=== PATIENT | male | born 1930 | race Caucasian/White ===

== ENCOUNTER 2016-12-16 13:13 | Inpatient (IN) | payer OTHER ==
[~2016-12-16] VITALS: Ht 170.2 cm; Wt 118.0 kg
[~2016-12-16 13:13] MED LIST: ALBU1NEB10 INH; ARC10 PO; ASPI81TA28 PO; CRFUDL PO; DFL100 PO; FINA5TAB4 PO; FLM4 PO; FLX10 PO; FRS/40 PO; GLC500 PO; GLIM1TAB2 PO; LEVO75TA5 PO; METO50TA17 PO; OXGN; PRT40 PO; RMR15 PO; SPR25 PO; SPRIN/30 INH; ULT50HP PO
--- NOTE | 2016-12-16 13:42 | EMERGENCY ROOM VISIT NOTE ---
History Report prepared by Scribe: Mohini Fernandez Under the Supervision of: Dr. Gordo Duke D.O. First contact with patient: 13:31 Chief Complaint: INFECTION Stated Complaint: INFECTION Nursing Triage Summary: Left sided facial swelling and redness since yesterday. Family reports fever last night. Pt has dementia, but has been more confused. Elevated BSG last night. History of Present Illness The patient is an 86 year old male who presents to the Emergency Room with complaints of a possible facial infection. He is accompanied by his and daughters. His family reports he has had persistent left sided facial swelling and redness that started yesterday. They believe the patient had a fever of 101 degrees last night and he also complained of the chills. The patient denies any pain in his face. He has had no difficulty speaking or eating. He has a history of dementia and has been more confused recently and his blood sugar was noted to be elevated last night, approximately 409. The patient also denies any abdominal pain. Source of History: patient, family Onset: yesterday Position: head (face) Timing: other (persistent) Associated Symptoms: + chills, + fevers, No abdominal pain Review of Systems See HPI for pertinent positives & negatives. A total of 10 systems reviewed and were otherwise negative. Past Medical & Surgical Medical Problems: (1) Benign prostatic hyperplasia (2) CHF (congestive heart failure) (3) Chronic osteoarthritis (4) CKD (chronic kidney disease), stage III (5) COPD (chronic obstructive pulmonary disease) (6) Dementia (7) Diabetes mellitus type 2 (8) Facial cellulitis (9) GERD (gastroesophageal reflux disease) (10) HTN (hypertension) (11) MIKIE on CPAP Surgical Problems: (1) Hx of cholecystectomy (2) Hx of umbilical hernia repair (3) s p appendectomy (4) s p hernia repair (5) s p right TKA (6) s p shoulder surgery Family History Cancer Diabetes mellitus Heart disease Hypertension Lung disease Social History Smoking Status: Former Smoker Alcohol Use: none Drug Use: none Marital Status: Housing Status: lives with family Occupation Status: retired Current/Historical Medications Scheduled Aspirin (Aspirin Ec), 81 MG PO DAILY Donepezil HCl (Donepezil HCl), 10 MG PO DAILY Finasteride (Proscar), 5 MG PO QAM Furosemide (Lasix), 40 MG PO BID Glimepiride (Glimepiride), 4 MG PO BID Levothyroxine Sodium (Levothyroxine Sodium), 75 MCG PO DAILY Magnesium Oxide (Magnesium), 800 MG PO DAILY Metformin HCl (Metformin HCl), 1,000 MG PO BID Metoprolol Tartrate (Metoprolol Tartrate), 50 MG PO BID Mirtazapine (Mirtazapine), 15 MG PO HS Oxygen (Oxygen), 2 LITERS NA HS Pantoprazole (Protonix), 40 MG PO DAILY Spironolactone (Spironolactone), 12.5 MG PO DAILY Tamsulosin HCl (Tamsulosin HCl), 0.4 MG PO DAILY Tiotropium Morgan (Spiriva Handihaler), 1 CAP INH DAILY Scheduled PRN Cyclobenzaprine HCl (Cyclobenzaprine HCl), 10 MG PO TID PRN for Muscle Spasms Tramadol (Ultram), 50 MG PO Q4H PRN for Pain Allergies Coded Allergies: Pravastatin (Verified Allergy, Unknown, MUSCLE PAIN, 12/16/16) Physical Exam Vital Signs Date Time Temp Pulse Resp B/P Pulse Ox O2 Delivery O2 Flow Rate FiO2 12/16/16 17:00 81 18 122/58 91 Room Air 12/16/16 14:59 68 20 117/73 94 Room Air 12/16/16 13:19 37.0 83 20 135/82 94 Room Air Physical Exam GENERAL: Patient is awake, alert, non-anxious appearing and comfortable. EYES: The conjunctivae are clear. The pupils are round and reactive. EARS, NOSE, MOUTH AND THROAT: The nose is without any evidence of any deformity. Mucous membranes are moist tongue is midline. There was swelling over the left parotid gland with significant surrounding erythema involving the left cheek and left ear. No drainage noted, mucous membranes are moist. NECK: The neck is nontender and supple. RESPIRATORY: Normal respiratory effort is noted there is no evidence of wheezing rhonchi or rales CARDIOVASCULAR: Regular rate and rhythm noted there no murmurs rubs or gallops normal S1 normal S2 GASTROINTESTINAL: The abdomen is soft. Bowel sounds are present in all quadrants. Abdomen is nontender MUSCULOSKELETAL/EXTREMITIES: There is no evidence of gross deformity full range of motion is noted in the hips and shoulders SKIN: Pedal edema bilaterally. There is no obvious evidence of any rash. There are no petechiae, pallor or cyanosis noted. NEUROLOGIC: Patient is awake alert and oriented x3 Medical Decision & Procedures ER Provider Diagnostic Interpretation: This X-Ray was reviewed and interpreted by myself and the radiologist. CHEST ONE VIEW PORTABLE IMPRESSION: 1. No acute cardiopulmonary findings. 2. Several pulmonary nodules which have likely increased in size. These are indeterminate and a nonemergent chest CT is recommended. Electronically signed by: Casper Schulz M.D. 12/16/2016 3:[address] scan was reviewed and interpreted by the radiologist and reviewed by myself. MAXILLOFACIAL CT IMPRESSION: 1. Mild left facial cellulitis and/or subcutaneous fat infiltrative change. 2. Possible mild sialoadenitis of the inferior left parotid. 3. No evidence for drainable abscess or collection. Electronically signed by: Sg Lane M.D. 12/16/2016 2:38 PM Laboratory Results 12/16/16 14:50 Red Blood Count 4.48, Mean Corpuscular Volume 96.7, Mean Corpuscular Hemoglobin 32.6, Mean Corpuscular Hemoglobin Concent 33.7, Mean Platelet Volume 13.0, Neutrophils (%) (Auto) 83.7, Lymphocytes (%) (Auto) 8.2, Monocytes (%) (Auto) 7.4, Eosinophils (%) (Auto) 0.0, Basophils (%) (Auto) 0.4, Neutrophils # (Auto) 8.24, Lymphocytes # (Auto) 0.81, Monocytes # (Auto) 0.73, Eosinophils # (Auto) 0.00, Basophils # (Auto) 0.04 12/16/16 14:50 Test 12/16/16 14:50 12/16/16 14:59 12/16/16 17:27 White Blood Count 9.85 K/uL (4.8-10.8) Red Blood Count 4.48 M/uL (4.7-6.1) Hemoglobin 14.6 g/dL (14.0-18.0) Hematocrit 43.3 % (42-52) Mean Corpuscular Volume 96.7 fL (80-100) Mean Corpuscular Hemoglobin 32.6 pg (25-34) Mean Corpuscular Hemoglobin Concent 33.7 g/dl (32-36) Platelet Count 145 K/uL (130-400) Mean Platelet Volume 13.0 fL (7.4-10.4) Neutrophils (%) (Auto) 83.7 % Lymphocytes (%) (Auto) 8.2 % Monocytes (%) (Auto) 7.4 % Eosinophils (%) (Auto) 0.0 % Basophils (%) (Auto) 0.4 % Neutrophils # (Auto) 8.24 K/uL (1.4-6.5) Lymphocytes # (Auto) 0.81 K/uL (1.2-3.4) Monocytes # (Auto) 0.73 K/uL (0.11-0.59) Eosinophils # (Auto) 0.00 K/uL (0-0.5) Basophils # (Auto) 0.04 K/uL (0-0.2) RDW Standard Deviation 44.9 fL (36.4-46.3) RDW Coefficient of Variation 12.8 % (11.5-14.5) Immature Granulocyte % (Auto) 0.3 % Immature Granulocyte # (Auto) 0.03 K/uL (0.00-0.02) Erythrocyte Sedimentation Rate 33 mm/hr (0-14) Prothrombin Time 11.4 SECONDS (9.0-12.0) Prothromb Time International Ratio 1.1 (0.9-1.1) Activated Partial Thromboplast Time 26.9 SECONDS (21.0-31.0) Partial Thromboplastin Ratio 1.0 Anion Gap 5.0 mmol/L (3-11) Est Creatinine Clear Calc Drug Dose 41.8 ml/min Estimated GFR () 47.5 Estimated GFR (Non- 41.0 BUN/Creatinine Ratio 16.9 (10-20) Calcium Level 8.9 mg/dl (8.5-10.1) Total Bilirubin 0.6 mg/dl (0.2-1) Direct Bilirubin 0.2 mg/dl (0-0.2) Aspartate Amino Transf (AST/SGOT) 38 U/L (15-37) Alanine Aminotransferase (ALT/SGPT) 46 U/L (12-78) Alkaline Phosphatase 98 U/L (45-117) C-Reactive Protein 4.69 mg/dl (0-0.29) Total Protein 7.3 gm/dl (6.4-8.2) Albumin 3.5 gm/dl (3.4-5.0) Lipase 83 U/L (73-393) Bedside Lactic Acid Venous 3.13 mmol/L (0.90-1.70) Laboratory results per my review. Medications Administered Medications (Trade) Dose Ordered Sig/Heraclio Route Start Time Stop Time Status Last Admin Dose Admin Ampicillin Sodium/ Sulbactam Sodium 3000 mg/Sodium Chloride 108 ml @ 200 mls/hr ONE ONCE IV 12/16/16 14:15 12/16/16 14:47 DC 12/16/16 15:03 200 MLS/HR Sodium Chloride (Nss 500ml) 500 ml @ 999 mls/hr Q31M STAT IV 12/16/16 15:46 12/16/16 16:16 DC 12/16/16 16:01 999 MLS/HR ED Course 1332: The patient was evaluated in room C1. A complete history and physical examination were performed. 1415: Ampicillin Sodium/Sulbactam Sodium 3000 mg/Sodium Chloride 108 ml @ 200 mls/hr IV. 1546: NSS 500 ml @ 999 mls/hr IV. 1640: I reevaluated the patient. I discussed my recommendation that he remain in the hospital for further evaluation and he and his family verbalized complete understanding and agreement. 1752: I discussed the patients case with Karen Lopez PA-C, [facility]. The patient will be further evaluated. Medical Decision Prior records reviewed and summarized as above. Triage Nursing notes reviewed. The patient's history was concerning for swelling and redness of the skin. Differential diagnosis: Etiologies such as cellulitis, abscess, MRSA infection, DVT, necrotizing fasciitis, dermatitis, drug eruption, as well as others were entertained. The patient is an 86-year-old male who presented to the emergency department for evaluation of swelling and redness over the left side of his face. The patient went to see his primary care physician and was sent to the emergency department for further evaluation. His primary care physician felt he needed to be admitted to the hospital for IV antibiotics. The patient doesn't a history of diabetes and has very significant facial cellulitis. He does appear to have signs of parotitis but there does not appear to be any drainage from Stensen's duct. I discussed the patient's laboratory radiographic studies with him. He was treated with IV fluids and IV antibiotics in the emergency department. The patient was reevaluated multiple times. I discussed his case with the on-call [facility] group. They've agreed to evaluate the patient in the emergency apartment for further management and disposition. Consults Time Called: 1749 Consulting Physician: Karen Lopez PA-C, [facility] Returned Call: [phone] I discussed the patients case with Karen Lopez PA-C, [facility]. The patient will be further evaluated. Impression Primary Impression: Parotiditis Additional Impression: Facial cellulitis Scribe Attestation The scribe's documentation has been prepared under my direction and personally reviewed by me in its entirety. I confirm that the note above accurately reflects all work, treatment, procedures, and medical decision making performed by me. Departure Information Dispostion Being Evaluated By Hospitalist Referrals No Doctor, Assigned (PCP) Patient Instructions My [facility] Problem Qualifiers
[2016-12-16] MEDS ORDERED: AMPICILLIN/SULBACTAM SOD INJ 3,000 MG in SODIUM CHLORIDE 0.9% 100ML 100 ML IV ONE (14:15)
[2016-12-16] MEDS ORDERED: FURO-85 PO (14:28)
[2016-12-16] MEDS ORDERED: MAGN1TAB41 PO (14:28)
[2016-12-16] MEDS ORDERED: GLIM4TAB2 PO (14:28)
[2016-12-16] MEDS ORDERED: PANT40TA PO (14:28)
[2016-12-16] MEDS ORDERED: TRAM-10 PO (14:28)
--- NOTE | 2016-12-16 14:39 | DIAGNOSTIC IMAGING REPORT ---
MAXILLOFACIAL CT CT DOSE: 748.49 mGy.cm HISTORY: Pain. Edema. left facial swelling TECHNIQUE: Multiaxial CT images of the maxillofacial region were performed and reformatted in the coronal plane without the use of contrast. COMPARISON: None. FINDINGS: Soft tissue edema about the left facial region. The appearances suggestive of a mild nonspecific cellulitis possibly combined with mild degree of inflammatory change of the left parotid. Several small reactive nodes are present. There is no evidence for drainable abscess or collection. The orbits appear symmetric. Globes are symmetric. IMPRESSION: Mild left facial cellulitis and/or subcutaneous fat infiltrative change. 2. Possible mild sialoadenitis of the inferior left parotid. 3. No evidence for drainable abscess or collection. Electronically signed by: Sg Lane M.D. 12/16/2016 2:38 PM Dictated Date/Time: 12/16/2016 2:35 PM
--- NOTE | 2016-12-16 15:03 | DIAGNOSTIC IMAGING REPORT ---
CHEST ONE VIEW PORTABLE CLINICAL HISTORY: Abdominal pain. COMPARISON STUDY: Chest radiograph March 31, 2015. FINDINGS: There is no pneumothorax or pleural effusion. Widening of right paratracheal stripe is unchanged. Moderate cardiomegaly is unchanged and there is no evidence of pulmonary edema. Mild elevation of the right hemidiaphragm is unchanged. No consolidation is identified. 1.4 cm left apical nodule has likely increased in size since exam of March 31, 2015. There may be a 1.8 cm right midlung nodule. IMPRESSION: 1. No acute cardiopulmonary findings. 2. Several pulmonary nodules which have likely increased in size. These are indeterminate and a nonemergent chest CT is recommended. Electronically signed by: Casper Schulz M.D. 12/16/2016 3:01 PM Dictated Date/Time: 12/16/2016 2:53 PM
[2016-12-16 15:12] LABS: BASO % 0.4 %; BASO ABS # 0.04 K/uL (0-0.2); COMPLETE YES; HEMATOCRIT 43.3 % (42-52); IG% 0.3 %; LYMPH % 8.2 %; LYMPH ABS # 0.81 K/uL (1.2-3.4); MEAN CELL VOLUME 96.7 fL (80-100); MEAN CORPUSCULAR HEMOGLOBIN 32.6 pg (25-34); MEAN CORPUSCULAR HGB CONC 33.7 g/dl (32-36); MONO % 7.4 %; NEUT % 83.7 %; PLATELET COUNT 145 K/uL (130-400); RED BLOOD COUNT 4.48 M/uL (4.7-6.1); WHITE BLOOD COUNT 9.85 K/uL (4.8-10.8)
[2016-12-16 15:24] LABS: INR 1.1 (0.9-1.1); PROTHROMBIN TIME (PATIENT) 11.4 SECONDS (9.0-12.0)
[2016-12-16 15:40] LABS: BUN/CREATININE RATIO 16.9 (10-20); CALCIUM 8.9 mg/dl (8.5-10.1); CREATININE 1.5 mg/dl (0.60-1.40); POTASSIUM 4.4 mmol/L (3.5-5.1)
[2016-12-16 15:42] LABS: C-REACTIVE PROTEIN 4.69 mg/dl (0-0.29)
[2016-12-16] MEDS ORDERED: SODIUM CHLORIDE 0.9% 500ML 500 ML IV STA (15:46)
[2016-12-16] MEDS ORDERED: AMOX875T PO (16:24)
[2016-12-16 17:30] VITALS: O2SAT 91; Ht 170.2 cm; Wt 118.0 kg
[2016-12-16] MEDS ORDERED: TRAMADOL HCL 50 MG TAB PO PRN (17:30)
[2016-12-16] MEDS ORDERED: DEXTROSE 50% 50 ML SYR IV PRN (17:30)
[2016-12-16] MEDS ORDERED: CYCLOBENZAPRINE HCL 10 MG TAB PO PRN (17:30)
[2016-12-16] MEDS ORDERED: GLUCOSE 10 TABS/TUBE PO PRN (17:30)
[2016-12-16] MEDS ORDERED: ACETAMINOPHEN 325 MG TAB PO PRN (17:30)
[2016-12-16] MEDS ORDERED: GLUCAGON FOR INJ 1 MG VIAL SQ PRN (17:30)
[2016-12-16] MEDS ORDERED: ONDANSETRON INJ 2 MG/ML 2 ML VIAL IV PRN (17:30)
[2016-12-16] MEDS ORDERED: GLUCOSE 40% GEL 15 GM TUBE PO PRN (17:30)
--- NOTE | 2016-12-16 17:46 | History and Physical ---
History & Physical Date & Time of Service: December 16, 2016 at 17:30 Chief Complaint: Infection Primary Care Physician: Darlyn Morelos History of Present Illness Source: patient, family, clinic records, hospital records Patient seen and examined. 86 year old male with PMHx of Dementia, DM2, MIKIE, COPD, HTN, Hypothyroidism, CKD stage 3 presents to the ED complaining of face infection. History is taken primarily from the patient's family d/t patient's underlying dementia. They report that the patient had a small area of erythema on his left cheek last night that was very hot. He had an associated fever. They gave him Tylenol and he went to bed. When he wokeup this morning the erythema was over the patient's whole left cheek so they made an appointment with his PCP who then referred him to the ED for IV antibiotics. Patient has been somewhat more confused than baseline. They reports his BSG at home was over 400. He denies URI symptoms, chest pain, increase SOB, nausea, vomiting, diarrhea, dysuria, calf pain and edema .He has not been on Abx as an outpatient. He has small cut on his left cheek which the family noticed earlier this week and believe is secondary to a cut from shaving. In the ED VS are stable, there is no leukocytosis, POC lactate is 3.13. Crea is 1.5 from baseline near one. CT maxillofacial shows mild cellulitis. He received Unasyn and IVFs .He will be admitted for further workup and treatment. Past Medical/Surgical History Medical Problems: (1) Benign prostatic hyperplasia Status: Chronic (2) CHF (congestive heart failure) Status: Chronic (3) Chronic osteoarthritis Status: Chronic (4) CKD (chronic kidney disease), stage III Status: Chronic (5) COPD (chronic obstructive pulmonary disease) Status: Chronic (6) Dementia Status: Chronic (7) Diabetes mellitus type 2 Status: Chronic (8) GERD (gastroesophageal reflux disease) Status: Chronic (9) HTN (hypertension) Status: Chronic (10) MIKIE on CPAP Status: Chronic Surgical Problems: (1) Hx of cholecystectomy Status: Resolved (2) Hx of umbilical hernia repair Status: Resolved (3) s p appendectomy Status: Resolved (4) s p hernia repair Status: Resolved (5) s p right TKA Status: Resolved (6) s p shoulder surgery Status: Resolved Family History Cancer Diabetes mellitus Heart disease Hypertension Lung disease Social History Smoking Status: Former Smoker Alcohol Use: none Drug Use: none Marital Status: Housing status: lives with family Occupational Status: retired Immunizations History of Influenza Vaccine: Yes Influenza Vaccine Date: May 18, 2011 History of Tetanus Vaccine?: Yes Tetanus Immunization Date: Jun 27, 2010 History of Pneumococcal: No History of Hepatitis B Vaccine: Unknown Allergies Coded Allergies: Pravastatin (Verified Allergy, Unknown, MUSCLE PAIN, 12/16/16) Home Medications Scheduled Aspirin (Aspirin Ec), 81 MG PO DAILY Donepezil HCl (Donepezil HCl), 10 MG PO DAILY Finasteride (Proscar), 5 MG PO QAM Furosemide (Lasix), 40 MG PO BID Glimepiride (Glimepiride), 4 MG PO BID Levothyroxine Sodium (Levothyroxine Sodium), 75 MCG PO DAILY Magnesium Oxide (Magnesium), 800 MG PO DAILY Metformin HCl (Metformin HCl), 1,000 MG PO BID Metoprolol Tartrate (Metoprolol Tartrate), 50 MG PO BID Mirtazapine (Mirtazapine), 15 MG PO HS Oxygen (Oxygen), 2 LITERS NA HS Pantoprazole (Protonix), 40 MG PO DAILY Spironolactone (Spironolactone), 12.5 MG PO DAILY Tamsulosin HCl (Tamsulosin HCl), 0.4 MG PO DAILY Tiotropium Keenes (Spiriva Handihaler), 1 CAP INH DAILY Scheduled PRN Cyclobenzaprine HCl (Cyclobenzaprine HCl), 10 MG PO TID PRN for Muscle Spasms Tramadol (Ultram), 50 MG PO Q4H PRN for Pain Review of Systems Constitutional: + chills, + fever Eyes: No worsening of vision ENT: No nasal symptoms Respiratory: No cough, No shortness of breath Cardiovascular: No chest pain, No edema, No palpitations Abdomen: No constipation, No diarrhea, No nausea, No pain, No vomiting Musculoskeletal: No calf pain, No swelling Genitourinary - Male: No dysuria Neurologic: + memory loss, No numbness/tingling, No vertigo Psychiatric: No anxiety Endocrine: No fatigue Hematologic / Lymphatic: No abnormal bleeding/bruising Integumentary: + new/changing skin lesions Allergic / Immunologic: No environmental allergies Physical Exam Vital Signs Date Time Temp Pulse Resp B/P Pulse Ox O2 Delivery O2 Flow Rate FiO2 12/16/16 17:00 81 18 122/58 91 Room Air 12/16/16 14:59 68 20 117/73 94 Room Air 12/16/16 13:19 37.0 83 20 135/82 94 Room Air General Appearance: + pertinent finding (Obese chronically ill appearing 86 year old male lying in bed in NAD with family at bedside ) Head: normocephalic, atraumatic Eyes: PERRL, EOMI, sclerae normal ENT: pharynx normal Neck: supple, no JVD Respiratory/Chest: chest non-tender, lungs clear, normal breath sounds, no respiratory distress, no accessory muscle use Cardiovascular: regular rate, rhythm, no edema, no gallop, no JVD, no murmur, normal peripheral pulses Abdomen/GI: normal bowel sounds, non tender, soft Back: normal inspection, no muscle spasm Extremities/Musculoskelatal: no calf tenderness, normal capillary refill, no pedal edema Neurologic/Psych: + pertinent finding (Alert, oriented to person and place, no focal deficits noted ) Skin: + pertinent finding (Erythema to left face, warm, associated small cut near left eyebrow. No purulent drainage ) Lymphatic: no adenopathy Diagnostics Laboratory Results Results Past 24 Hours Test 12/16/16 14:50 12/16/16 14:59 12/16/16 17:25 Range/Units White Blood Count 9.85 4.8-10.8 K/uL Red Blood Count 4.48 4.7-6.1 M/uL Hemoglobin 14.6 14.0-18.0 g/dL Hematocrit 43.3 42-52 % Mean Corpuscular Volume 96.7 80-100 fL Mean Corpuscular Hemoglobin 32.6 25-34 pg Mean Corpuscular Hemoglobin Concent 33.7 32-36 g/dl Platelet Count 145 130-400 K/uL Mean Platelet Volume 13.0 7.4-10.4 fL Neutrophils (%) (Auto) 83.7 % Lymphocytes (%) (Auto) 8.2 % Monocytes (%) (Auto) 7.4 % Eosinophils (%) (Auto) 0.0 % Basophils (%) (Auto) 0.4 % Neutrophils # (Auto) 8.24 1.4-6.5 K/uL Lymphocytes # (Auto) 0.81 1.2-3.4 K/uL Monocytes # (Auto) 0.73 0.11-0.59 K/uL Eosinophils # (Auto) 0.00 0-0.5 K/uL Basophils # (Auto) 0.04 0-0.2 K/uL RDW Standard Deviation 44.9 36.4-46.3 fL RDW Coefficient of Variation 12.8 11.5-14.5 % Immature Granulocyte % (Auto) 0.3 % Immature Granulocyte # (Auto) 0.03 0.00-0.02 K/uL Erythrocyte Sedimentation Rate 33 0-14 mm/hr Prothrombin Time 11.4 9.0-12.0 SECONDS Prothromb Time International Ratio 1.1 0.9-1.1 Activated Partial Thromboplast Time 26.9 21.0-31.0 SECONDS Partial Thromboplastin Ratio 1.0 Sodium Level 137 136-145 mmol/L Potassium Level 4.4 3.5-5.1 mmol/L Chloride Level 100 98-107 mmol/L Carbon Dioxide Level 32 21-32 mmol/L Anion Gap 5.0 3-11 mmol/L Blood Urea Nitrogen 25 7-18 mg/dl Creatinine 1.50 0.60-1.40 mg/dl Est Creatinine Clear Calc Drug Dose 41.8 ml/min Estimated GFR () 47.5 Estimated GFR (Non- 41.0 BUN/Creatinine Ratio 16.9 10-20 Random Glucose 251 70-99 mg/dl Calcium Level 8.9 8.5-10.1 mg/dl Total Bilirubin 0.6 0.2-1 mg/dl Direct Bilirubin 0.2 0-0.2 mg/dl Aspartate Amino Transf (AST/SGOT) 38 15-37 U/L Alanine Aminotransferase (ALT/SGPT) 46 12-78 U/L Alkaline Phosphatase 98 45-117 U/L C-Reactive Protein 4.69 0-0.29 mg/dl Total Protein 7.3 6.4-8.2 gm/dl Albumin 3.5 3.4-5.0 gm/dl Lipase 83 73-393 U/L Bedside Lactic Acid Venous 3.13 0.90-1.70 mmol/L Microbiology Results 12/16/16 Blood Culture, Received Pending 12/16/16 Blood Culture, Received Pending Diagnostic Radiology CXR Per radiologist read: IMPRESSION: 1. No acute cardiopulmonary findings. 2. Several pulmonary nodules which have likely increased in size. These are indeterminate and a nonemergent chest CT is recommended. CT MAXILLOFACIAL Per radiologist read: IMPRESSION: Mild left facial cellulitis and/or subcutaneous fat infiltrative change. 2. Possible mild sialoadenitis of the inferior left parotid. 3. No evidence for drainable abscess or collection. Impression Assessment and Plan 86 year old male presents to the ED complaining of fevers, and left facial infection LEFT FACIAL CELLULITIS -Admit to med/surg -VSS, no leukocytosis, POC lactate 3.13 -CT maxillofacial consistent with cellulitis, no abscess identified -Blood culture pending -Empirically treat with Unasyn -Repeat Lactate -CBC, PRP, Mg in AM DM2 -Recent A1c 8.9 -Hold po diabetic agents -SSI coverage -BSG AC HS -Consistent carbohydrate diet CKD STAGE 3 with DEEP -Crea 1.5, baseline 1.1 -Received gentle IVFs in ED -will hold diuretics tonight -repeat PRP in AM HTN -Stable -continue BB -hold diuretics form mild DEEP COPD -stable -continue home inhalers MIKIE -continue CPAP DEMENTIA -continue Aricept DIASTOLIC CHF -Appears euvolemic -will hole Spironolactone, Lasix tonight for mild DEEP -likely can resume tomorrow HYPOTHYROIDISM -continue Synthroid BPH -continue Proscar, Flomax LUNG NODULES -incidental on CXR -nonemergent CT followup recommended DVT PROPHYLAXIS: Sq heparin CODE STATUS: FULL CODE per discussion with the patient's daughter who is POA DISPO:In my clinical judgment this beneficiary meets acute admission criteria, established by [facility], that includes being hospitalized through two midnights. Discharge planning eval, PT/OT Patient seen in collaboration with Dr. Fischer ADDENDUM: This is a 86 year old male with a PMH of dementia, diastolic CHF, DM2, HTN, CKD stage 3 presents with left facial cellulitis - was seen by primary care and told to the come to the ER for further evaluation. Upon presentation, he developed fever - lactic acid was elevated; he felt okay, though patient's states he has been slightly more confused than usual. GEN: in no acute distress HEENT: left facial erythema, cellulitic changes, mild swelling CVS: +S1, S2, RRR LUNGS: CTA b/l, no wheezing For the facial cellulitis, we can continue Unasyn and transition to Augmentin when ready for discharge His lactic acid level is elevated - we will start gentle hydration - to note, he has diastolic CHF and his outpatient diuretic dose is Lasix 40mg BID, which is currently held acute kidney injury superimposed on CKD stage 3 - receiving 1L of NS @ 75mL/hr - monitor for fluid overload Agree with plan above VTE Prophylaxis VTE Risk Assessment Done? Y/N: Yes Risk Level: Moderate
[2016-12-16] MEDS ORDERED: SODIUM CHLORIDE 0.9% 1000ML 1,000 ML IV SCH (18:51)
[2016-12-16 18:55] VITALS: BP 131/68; PULSE 97; TEMP 39.2; O2SAT 93
[2016-12-16] MEDS ORDERED: AMPICILLIN/SULBACTAM CONSULT ACTIVE PRN ×2 (20:00)
[2016-12-16 20:14] VITALS: TEMP 37.7
[2016-12-16] MEDS: MIRTAZAPINE TAB 15 MG TAB PO SCH (20:28)
[2016-12-16] MEDS: METOPROLOL TARTRATE 50 MG TAB PO SCH (20:28)
[2016-12-16] MEDS: INSULIN ASPART 100 UNITS/ML 3 ML PEN SC SCH (20:30)
[2016-12-16] MEDS: AMPICILLIN/SULBACTAM SOD INJ 3,000 MG in SODIUM CHLORIDE 0.9% 100ML 100 ML IV SCH (21:34)
[2016-12-16] MEDS: HEPARIN SOD 5000 UNIT/0.5 ML CARP SQ SCH (21:34)
[2016-12-16 22:16] VITALS: PULSE 81; O2SAT 95
[2016-12-17 00:20] VITALS: BP 134/66; PULSE 71; TEMP 36.4; O2SAT 92
[2016-12-17] MEDS: AMPICILLIN/SULBACTAM SOD INJ 3,000 MG in SODIUM CHLORIDE 0.9% 100ML 100 ML IV SCH ×2 (03:36→09:31)
[2016-12-17] MEDS: LEVOTHYROXINE 75 MCG TAB PO SCH (05:40)
[2016-12-17] MEDS: HEPARIN SOD 5000 UNIT/0.5 ML CARP SQ SCH ×3 (05:42→21:27)
[2016-12-17 06:35] LABS: HEMATOCRIT 40.4 % (42-52); MEAN CELL VOLUME 96.7 fL (80-100); MEAN CORPUSCULAR HEMOGLOBIN 31.8 pg (25-34); MEAN CORPUSCULAR HGB CONC 32.9 g/dl (32-36); MEAN PLATELET VOLUME 12.4 fL (7.4-10.4); PLATELET COUNT 125 K/uL (130-400); PLT ESTIMATE DECREASED; RED BLOOD COUNT 4.18 M/uL (4.7-6.1); WHITE BLOOD COUNT 7.97 K/uL (4.8-10.8)
[2016-12-17 06:44] LABS: BUN/CREATININE RATIO 19.8 (10-20); CALCIUM 8.6 mg/dl (8.5-10.1); CREATININE 1.3 mg/dl (0.60-1.40); MAGNESIUM 2.1 mg/dl (1.8-2.4); POTASSIUM 3.9 mmol/L (3.5-5.1)
[2016-12-17 07:01] VITALS: BP 127/72; PULSE 71; TEMP 36.8; O2SAT 92
[2016-12-17] MEDS: TIOTROPIUM BROMIDE 5 PUFF/90 MCG INH INH SCH (07:50)
[2016-12-17] MEDS: TAMSULOSIN HCL 0.4 MG CAP PO SCH (07:51)
[2016-12-17] MEDS: METOPROLOL TARTRATE 50 MG TAB PO SCH ×2 (07:51→21:24)
[2016-12-17] MEDS: DONEPEZIL HCL 10 MG TAB PO SCH (07:51)
[2016-12-17] MEDS: ASPIRIN 81 MG ECTAB PO SCH (07:51)
[2016-12-17] MEDS: PANTOprazole SOD 40 MG TAB PO SCH (07:51)
[2016-12-17] MEDS: FINASTERIDE 5 MG TAB PO SCH (07:51)
[2016-12-17] MEDS: INSULIN ASPART 100 UNITS/ML 3 ML PEN SC SCH ×4 (09:29→21:26)
[2016-12-17] MEDS ORDERED: CONSULT PHARMACY STA (12:45)
[2016-12-17] MEDS ORDERED: VANCOMYCIN CONSULT ACTIVE PRN (13:00)
--- NOTE | 2016-12-17 13:12 | Progress Note ---
Medicine Progress Note Date & Time of Visit: December 17, 2016 at 12:48. Subjective 86 yoM with facial cellulitis of uncertain origin. -patient denies pain, fevers, or chills -Tm overnight was 39.2 -feels improved somewhat -denies shortness of breath, chest pain, nausea, or other issues at this time -states that he feels well and is not sure how he got his rash -tolerating PO Objective Last 8 Hrs Date Time Temp Pulse Resp B/P Pulse Ox O2 Delivery O2 Flow Rate FiO2 12/17/16 08:00 Room Air 12/17/16 07:01 36.8 71 18 127/72 92 Room Air Physical Exam: GEN: obese, in no acute distress, alert and appropriate HEENT: NC/AT, normal sclerae, mucous membranes moist, erythematous area includes entire left cheek to lower eyelid, stops at left lateral nasolabial fold line, spreads just to the mandible and slightly pick below this and encompasses the entire left ear including ear swelling. Erythema is warm to the touch. Sclera not affected. CARDIO: reg rate, S1/2 heard without m/g/r LUNGS: CTA bilaterally, no crackles, rales or wheezes, good diaphragmatic excursion ABD: soft, non-tender, non-distended, no rebound or guarding EXTREMITY: no LE swelling or edema, extremities are warm and well-perfused, shins are TTP bilaterally, neg Jayne's sign NEURO: CN 2-12 grossly intact MUSC: no gross focal deficits SKIN: warm and dry and as above. Laboratory Results: 12/17/16 05:55 12/17/16 05:55 Test 12/16/16 14:50 12/16/16 14:59 12/17/16 05:55 12/17/16 11:35 Immature Granulocyte % (Auto) 0.3 % White Blood Count 9.85 K/uL (4.8-10.8) Red Blood Count 4.48 M/uL (4.7-6.1) 4.18 M/uL (4.7-6.1) Hemoglobin 14.6 g/dL (14.0-18.0) Hematocrit 43.3 % (42-52) Mean Corpuscular Volume 96.7 fL (80-100) 96.7 fL (80-100) Mean Corpuscular Hemoglobin 32.6 pg (25-34) 31.8 pg (25-34) Mean Corpuscular Hemoglobin Concent 33.7 g/dl (32-36) 32.9 g/dl (32-36) Platelet Count 145 K/uL (130-400) Mean Platelet Volume 13.0 fL (7.4-10.4) 12.4 fL (7.4-10.4) Neutrophils (%) (Auto) 83.7 % Lymphocytes (%) (Auto) 8.2 % Monocytes (%) (Auto) 7.4 % Eosinophils (%) (Auto) 0.0 % Basophils (%) (Auto) 0.4 % Neutrophils # (Auto) 8.24 K/uL (1.4-6.5) Lymphocytes # (Auto) 0.81 K/uL (1.2-3.4) Monocytes # (Auto) 0.73 K/uL (0.11-0.59) Eosinophils # (Auto) 0.00 K/uL (0-0.5) Basophils # (Auto) 0.04 K/uL (0-0.2) Immature Granulocyte # (Auto) 0.03 K/uL (0.00-0.02) Erythrocyte Sedimentation Rate 33 mm/hr (0-14) Prothrombin Time 11.4 SECONDS (9.0-12.0) Prothromb Time International Ratio 1.1 (0.9-1.1) Activated Partial Thromboplast Time 26.9 SECONDS (21.0-31.0) Partial Thromboplastin Ratio 1.0 Total Bilirubin 0.6 mg/dl (0.2-1) Direct Bilirubin 0.2 mg/dl (0-0.2) Aspartate Amino Transf (AST/SGOT) 38 U/L (15-37) Alanine Aminotransferase (ALT/SGPT) 46 U/L (12-78) Alkaline Phosphatase 98 U/L (45-117) C-Reactive Protein 4.69 mg/dl (0-0.29) Total Protein 7.3 gm/dl (6.4-8.2) Albumin 3.5 gm/dl (3.4-5.0) Lipase 83 U/L (73-393) Bedside Lactic Acid Venous 3.13 mmol/L (0.90-1.70) RDW Standard Deviation 46.1 fL (36.4-46.3) RDW Coefficient of Variation 13.1 % (11.5-14.5) Platelet Estimate DECREASED Anion Gap 7.0 mmol/L (3-11) Est Creatinine Clear Calc Drug Dose 48.3 ml/min Estimated GFR () 56.5 Estimated GFR (Non- 48.7 BUN/Creatinine Ratio 19.8 (10-20) Lactic Acid Level 1.8 mmol/L (0.4-2.0) Calcium Level 8.6 mg/dl (8.5-10.1) Magnesium Level 2.1 mg/dl (1.8-2.4) Bedside Glucose 200 mg/dl (70-99) Date/Time Source Procedure Growth Status 12/16/16 17:11 Blood Blood Culture Pending Received Last 24 Hours Test 12/16/16 14:50 12/16/16 14:59 12/16/16 17:27 12/16/16 20:26 White Blood Count 9.85 K/uL Red Blood Count 4.48 M/uL Hemoglobin 14.6 g/dL Hematocrit 43.3 % Mean Corpuscular Volume 96.7 fL Mean Corpuscular Hemoglobin 32.6 pg Mean Corpuscular Hemoglobin Concent 33.7 g/dl Platelet Count 145 K/uL Mean Platelet Volume 13.0 fL Neutrophils (%) (Auto) 83.7 % Lymphocytes (%) (Auto) 8.2 % Monocytes (%) (Auto) 7.4 % Eosinophils (%) (Auto) 0.0 % Basophils (%) (Auto) 0.4 % Neutrophils # (Auto) 8.24 K/uL Lymphocytes # (Auto) 0.81 K/uL Monocytes # (Auto) 0.73 K/uL Eosinophils # (Auto) 0.00 K/uL Basophils # (Auto) 0.04 K/uL RDW Standard Deviation 44.9 fL RDW Coefficient of Variation 12.8 % Immature Granulocyte % (Auto) 0.3 % Immature Granulocyte # (Auto) 0.03 K/uL Erythrocyte Sedimentation Rate 33 mm/hr Prothrombin Time 11.4 SECONDS Prothromb Time International Ratio 1.1 Activated Partial Thromboplast Time 26.9 SECONDS Partial Thromboplastin Ratio 1.0 Sodium Level 137 mmol/L Potassium Level 4.4 mmol/L Chloride Level 100 mmol/L Carbon Dioxide Level 32 mmol/L Anion Gap 5.0 mmol/L Blood Urea Nitrogen 25 mg/dl Creatinine 1.50 mg/dl Est Creatinine Clear Calc Drug Dose 41.8 ml/min Estimated GFR () 47.5 Estimated GFR (Non- 41.0 BUN/Creatinine Ratio 16.9 Random Glucose 251 mg/dl Calcium Level 8.9 mg/dl Total Bilirubin 0.6 mg/dl Direct Bilirubin 0.2 mg/dl Aspartate Amino Transf (AST/SGOT) 38 U/L Alanine Aminotransferase (ALT/SGPT) 46 U/L Alkaline Phosphatase 98 U/L C-Reactive Protein 4.69 mg/dl Total Protein 7.3 gm/dl Albumin 3.5 gm/dl Lipase 83 U/L Bedside Lactic Acid Venous 3.13 mmol/L Lactic Acid Level 2.7 mmol/L Bedside Glucose 199 mg/dl Test 12/16/16 22:05 12/17/16 05:55 12/17/16 07:32 12/17/16 11:35 Lactic Acid Level 2.1 mmol/L 1.8 mmol/L White Blood Count 7.97 K/uL Red Blood Count 4.18 M/uL Hemoglobin 13.3 g/dL Hematocrit 40.4 % Mean Corpuscular Volume 96.7 fL Mean Corpuscular Hemoglobin 31.8 pg Mean Corpuscular Hemoglobin Concent 32.9 g/dl RDW Standard Deviation 46.1 fL RDW Coefficient of Variation 13.1 % Platelet Count 125 K/uL Mean Platelet Volume 12.4 fL Platelet Estimate DECREASED Sodium Level 140 mmol/L Potassium Level 3.9 mmol/L Chloride Level 103 mmol/L Carbon Dioxide Level 30 mmol/L Anion Gap 7.0 mmol/L Blood Urea Nitrogen 26 mg/dl Creatinine 1.30 mg/dl Est Creatinine Clear Calc Drug Dose 48.3 ml/min Estimated GFR () 56.5 Estimated GFR (Non- 48.7 BUN/Creatinine Ratio 19.8 Random Glucose 156 mg/dl Calcium Level 8.6 mg/dl Magnesium Level 2.1 mg/dl Bedside Glucose 132 mg/dl 200 mg/dl Date/Time Source Procedure Growth Status 12/16/16 17:11 Blood Blood Culture Pending Received 12/16/16 14:50 Blood Blood Culture Pending Received Assessment & Plan 86 yoM with facial cellulitis of uncertain origin 1. Erysipelas-likely 2/[address] shaving. [address] maxillofacial consistent with cellulitis, no abscess identified, Blood culture pending but not clinically ill- appearing. Lactate resolved and he has no leukocytosis. Change to Rocephin as Unasyn has high salt content with h/o CHF. This will cont to cover strep species incl group A strep, and MSSA. With fever/ tachycardia overnight and level of involvement of ear I will add Vanc to this empirically until things subside to add MRSA coverage. 2. DMII-hold PO diabetic agents, SSI coverage. Sugars are around goal for now. As he is tolerating PO, will add Lantus while in hospital. 3. DEEP 2/2 dehydration--patient with improvement in creat from 1.5 to 1.3 overnight. Cont to hold Lasix (40mg PO BID) and spironolactone as urine is concentrated and we are stopping IVF as he is tolerating PO. Consider restarting tomorrow. 4. Hypertension-controlled, cont BB 5. COPD-stable, no wheezing, cont home inhalers 6. MIKIE-cont CPAP qHS 7. Dementia-cont Aricept 8. Diastolic CHF-chronic, euvolemic on exam, no signs or symptoms of acute heart failure, cont holding spironolactone and Lasix in setting of DEEP 9. Hypothyroidism-cont Synthroid 10. BPH-cont Proscar, Flomax 11. Lung nodules-enlarged on CXR, requires non-emergent CT chest as outpatient DVT PROPHYLAXIS: Sq heparin CODE STATUS: FULL CODE per discussion with the patient's daughter who is POA DO Vin [facility] Current Inpatient Medications: Current Inpatient Medications Medications (Trade) Dose Ordered Sig/Heraclio Route Start Time Stop Time Status Last Admin Dose Admin Heparin Sodium (Porcine) (Heparin Sq 5000 Unit/0.5ml) 5,000 unit Q8H SQ 12/16/16 22:00 01/15/17 21:59 12/17/16 05:42 5,000 UNIT Acetaminophen (Tylenol Tab) 650 mg Q4H PRN PO 12/16/16 17:30 01/15/17 17:29 12/16/16 18:59 650 MG Ondansetron HCl (Zofran Inj) 4 mg Q6H PRN IV 12/16/16 17:30 01/15/17 17:29 Aspirin (Ecotrin Tab) 81 mg DAILY PO 12/17/16 09:00 01/16/17 08:59 12/17/16 07:51 81 MG Cyclobenzaprine HCl (Flexeril Tab) 10 mg TID PRN PO 12/16/16 17:30 01/15/17 17:29 Donepezil HCl (Aricept Tab) 10 mg DAILY PO 12/17/16 09:00 01/16/17 08:59 12/17/16 07:51 10 MG Finasteride (Proscar Tab) 5 mg QAM PO 12/17/16 09:00 01/16/17 08:59 12/17/16 07:51 5 MG Levothyroxine Sodium (Synthroid Tab) 75 mcg DAILYBB PO 12/17/16 06:30 01/16/17 06:29 12/17/16 05:40 75 MCG Metoprolol Tartrate (Lopressor Tab) 50 mg BID PO 12/16/16 21:00 01/15/17 20:59 12/17/16 07:51 50 MG Mirtazapine (Remeron Tab) 15 mg HS PO 12/16/16 21:00 01/15/17 20:59 12/16/16 20:28 15 MG Pantoprazole Sodium (Protonix Tab) 40 mg DAILY PO 12/17/16 09:00 01/16/17 08:59 12/17/16 07:51 40 MG Tamsulosin HCl (Flomax Cap) 0.4 mg DAILY PO 12/17/16 09:00 01/16/17 08:59 12/17/16 07:51 0.4 MG Tiotropium [place] (Spiriva Handihaler Inhaler) 1 puff DAILY INH 12/17/16 09:00 01/16/17 08:59 12/17/16 07:50 1 PUFF Tramadol HCl (Ultram Tab) 50 mg Q4H PRN PO 12/16/16 17:30 01/15/17 17:29 Insulin Aspart (novoLOG ASPART) SLIDING SCALE If C... ACHS SC 12/16/16 21:00 01/15/17 20:59 12/17/16 09:29 2 UNITS Glucose (Glucose 40% Gel) 15-30 GRAMS 15 GRAMS... UD PRN PO 12/16/16 17:30 01/15/17 17:29 Glucose (Glucose Chew Tab) 4-8 Tablets 4 Tabl... UD PRN PO 12/16/16 17:30 01/15/17 17:29 Dextrose (Dextrose 50% 50ML Syringe) 25-50ML OF 50% DW IV FOR... UD PRN IV 12/16/16 17:30 01/15/17 17:29 Glucagon 1 mg 1 mg UD PRN SQ 12/16/16 17:30 01/15/17 17:29 Ceftriaxone Sodium/Dextrose (Rocephin Inj/ Dextrose Add-[place] 50ML) 50 ml @ 100 mls/hr Q24H IV 12/17/16 13:00 12/27/16 12:59
[2016-12-17] MEDS: CEFTRIAXONE SOD INJ 1 GM in DEXTROSE 5% ADD-VANTAGE 50ML 50 ML IV SCH (13:21)
[2016-12-17] MEDS ORDERED: VANCOMYCIN INJ 2,700 MG in SODIUM CHLORIDE 0.9% 500ML 500 ML IV ONE (13:30)
[2016-12-17 15:18] VITALS: BP 126/56; PULSE 61; TEMP 36.9; O2SAT 90
--- NOTE | 2016-12-17 15:50 | Pharmacy Progress Note ---
Pharmacy Antibiotic Consult Date of Service: December 17, 2016. Pharmacy Dosing Scope Pharmacy is consulted to initiate Vancomycin IV dosing therapy, order appropriate labs and adjust drug dose/frequency. Subjective The patient is a 86 year old male admitted on December 16, 2016 at 17:25 with facial cellulitis. Objective Height (Feet): 5 Height (Inches): 7.00 Weight (Kilograms): 118.000 Lab Results (24hrs): Laboratory Tests Test 12/17/16 05:55 BUN/Creatinine Ratio 19.8 Blood Urea Nitrogen 26 mg/dl Creatinine 1.30 mg/dl White Blood Count 7.97 K/uL Micro Results: Item Value Date Time MRSA DNA Surveillance Screen Received 12/17/16 0000 Nasal Pending Blood Culture Received 12/16/16 1711 Blood Pending Blood Culture Received 12/16/16 1450 Blood Pending Recent Pertinent Medications Item Value Date Time Ceftriaxone 50 ml @ 100 mls/hr 12/17/16 1300 Sodium 1 gm/ Q24H/IV 12/17/16 1321 Dextrose Ampicillin Sodium/ 108 ml @ 216 mls/hr 12/16/16 2200 Sulbactam Sodium Q6H/IV 12/17/16 0931 3000 mg/Sodium Chloride Assessment & Plan ASSESSMENT [age] male patient admitted with facial cellulitis initially empirically received Ampicillin/sulbactam (Unasyn) 3gm IV q6 hrs overnight. This patient persisted with fever and tachycardia overnight. In addition, Unasyn has a relatively high sodium content therefore the patient was empirically converted to a ceftriaxone/vancomycin regimen while nasal and blood cultures are pending. Patient has a BMI 40.7 kg/m2 and also with CKD-3 ( baseline SCr ~1.1). Will reduce Vancomycin dose due to high BMI using volume of distribution ~0.6 L/kg and will widen dosing interval to allow adequate clearance given the renal dysfunction. Will draw trough pre-steady state to verify renal clearance. Plan Loading dose: Vancomycin 2700 mg (~23 mg/kg) IV X 1 dose then: Vancomycin 1600 mg (~ 13.5 mg/kg) IV every 24 hours. Goal peak level estimate: between 30 - 40 mcg/mL. Goal trough level estimate: between 13 - 17 mcg/mL. Vancomycin trough level has been ordered for: Wednesday12/19/16 prior to the 1000 hours dose. Pharmacy will continue to follow and will adjust dose/frequency as necessary. Thank you
[2016-12-17 21:21] VITALS: BP 154/76; PULSE 66
[2016-12-17] MEDS: MIRTAZAPINE TAB 15 MG TAB PO SCH (21:23)
[2016-12-17] MEDS: INSULIN GLARGINE SOLOSTAR 100 UNITS/ML 3 ML PEN SQ SCH (21:26)
[2016-12-17] MEDS ORDERED: hydrOXYzine HCL 10 MG TAB PO PRN (21:30)
[2016-12-17 21:54] VITALS: PULSE 86; O2SAT 96
[2016-12-17 23:17] VITALS: BP 137/72; PULSE 64; TEMP 36.9; O2SAT 90
[2016-12-18] VITALS (7 sets, daily range): BP systolic 125–171; BP diastolic 66–87; PULSE 60–69; TEMP 36.7; O2SAT 90–96
[2016-12-18] MEDS: HEPARIN SOD 5000 UNIT/0.5 ML CARP SQ SCH ×3 (05:52→21:53)
[2016-12-18] MEDS: LEVOTHYROXINE 75 MCG TAB PO SCH (07:44)
[2016-12-18 07:49] LABS: HEMATOCRIT 37.4 % (42-52); MEAN CELL VOLUME 97.4 fL (80-100); MEAN CORPUSCULAR HEMOGLOBIN 32.8 pg (25-34); MEAN CORPUSCULAR HGB CONC 33.7 g/dl (32-36); MEAN PLATELET VOLUME 12.2 fL (7.4-10.4); PLATELET COUNT 116 K/uL (130-400); RED BLOOD COUNT 3.84 M/uL (4.7-6.1); WHITE BLOOD COUNT 5.34 K/uL (4.8-10.8)
[2016-12-18 08:04] LABS: BUN/CREATININE RATIO 17.3 (10-20); CREATININE 1.1 mg/dl (0.60-1.40); MAGNESIUM 2.1 mg/dl (1.8-2.4); POTASSIUM 3.9 mmol/L (3.5-5.1)
[2016-12-18] MEDS: FINASTERIDE 5 MG TAB PO SCH (08:50)
[2016-12-18] MEDS: TIOTROPIUM BROMIDE 5 PUFF/90 MCG INH INH SCH (08:50)
[2016-12-18] MEDS: TAMSULOSIN HCL 0.4 MG CAP PO SCH (08:51)
[2016-12-18] MEDS: METOPROLOL TARTRATE 50 MG TAB PO SCH ×2 (08:51→21:49)
[2016-12-18] MEDS: DONEPEZIL HCL 10 MG TAB PO SCH (08:51)
[2016-12-18] MEDS: PANTOprazole SOD 40 MG TAB PO SCH (08:52)
[2016-12-18] MEDS: INSULIN ASPART 100 UNITS/ML 3 ML PEN SC SCH ×4 (08:58→21:00)
[2016-12-18] MEDS: INSULIN GLARGINE SOLOSTAR 100 UNITS/ML 3 ML PEN SQ SCH ×2 (08:59→21:53)
[2016-12-18 09:22] LABS: CALCIUM 8.6 mg/dl (8.5-10.1)
[2016-12-18] MEDS: ASPIRIN 81 MG ECTAB PO SCH (10:13)
[2016-12-18] MEDS: VANCOMYCIN INJ 1,600 MG in SODIUM CHLORIDE 0.9% 500ML 500 ML IV SCH (10:13)
[2016-12-18] MEDS: CEFTRIAXONE SOD INJ 1 GM in DEXTROSE 5% ADD-VANTAGE 50ML 50 ML IV SCH (13:55)
--- NOTE | 2016-12-18 15:00 | Progress Note ---
Medicine Progress Note Date & Time of Visit: December 18, 2016 at 12:25. Subjective Rocephin/Vanc started yesterday, MRSA+ and placed in isolation room pt doing well today states that he is doing well slept well last night tolerating PO no other symptoms are present including no fevers, chills, chest pain or shortness of breath. Objective Last 8 Hrs Date Time Temp Pulse Resp B/P Pulse Ox O2 Delivery O2 Flow Rate FiO2 12/18/16 08:00 Nasal Cannula 2.0 12/18/16 07:16 36.7 60 18 125/66 95 Nasal Cannula 2.0 Physical Exam: GEN: obese, in no acute distress, alert, hard of hearing HEENT: NC/AT, normal sclerae, mucous membranes moist, erythematous area includes entire left cheek to lower eyelid, stops at left lateral nasolabial fold line, spreads just to the mandible and slightly pick below this and encompasses the entire left ear including ear swelling. Erythema is warm to the touch. Sclera not affected. Redness has some areas of lightening, however , redness spread slightly upward to his R jehovah's witness area CARDIO: reg rate, S1/2 heard without m/g/r LUNGS: CTA bilaterally, no crackles, rales or wheezes, good diaphragmatic excursion ABD: soft, non-tender, non-distended, no rebound or guarding EXTREMITY: no LE swelling or edema, extremities are warm and well-perfused, shins are TTP bilaterally NEURO: CN 2-12 grossly intact MUSC: no gross focal deficits SKIN: warm and dry and as above. Laboratory Results: 12/18/16 07:21 12/18/16 07:21 Test 12/16/16 14:50 12/16/16 14:59 12/17/16 05:55 12/18/16 07:21 Immature Granulocyte % (Auto) 0.3 % White Blood Count 9.85 K/uL (4.8-10.8) Red Blood Count 4.48 M/uL (4.7-6.1) 3.84 M/uL (4.7-6.1) Hemoglobin 14.6 g/dL (14.0-18.0) Hematocrit 43.3 % (42-52) Mean Corpuscular Volume 96.7 fL (80-100) 97.4 fL (80-100) Mean Corpuscular Hemoglobin 32.6 pg (25-34) 32.8 pg (25-34) Mean Corpuscular Hemoglobin Concent 33.7 g/dl (32-36) 33.7 g/dl (32-36) Platelet Count 145 K/uL (130-400) Mean Platelet Volume 13.0 fL (7.4-10.4) 12.2 fL (7.4-10.4) Neutrophils (%) (Auto) 83.7 % Lymphocytes (%) (Auto) 8.2 % Monocytes (%) (Auto) 7.4 % Eosinophils (%) (Auto) 0.0 % Basophils (%) (Auto) 0.4 % Neutrophils # (Auto) 8.24 K/uL (1.4-6.5) Lymphocytes # (Auto) 0.81 K/uL (1.2-3.4) Monocytes # (Auto) 0.73 K/uL (0.11-0.59) Eosinophils # (Auto) 0.00 K/uL (0-0.5) Basophils # (Auto) 0.04 K/uL (0-0.2) Immature Granulocyte # (Auto) 0.03 K/uL (0.00-0.02) Erythrocyte Sedimentation Rate 33 mm/hr (0-14) Prothrombin Time 11.4 SECONDS (9.0-12.0) Prothromb Time International Ratio 1.1 (0.9-1.1) Activated Partial Thromboplast Time 26.9 SECONDS (21.0-31.0) Partial Thromboplastin Ratio 1.0 Total Bilirubin 0.6 mg/dl (0.2-1) Direct Bilirubin 0.2 mg/dl (0-0.2) Aspartate Amino Transf (AST/SGOT) 38 U/L (15-37) Alanine Aminotransferase (ALT/SGPT) 46 U/L (12-78) Alkaline Phosphatase 98 U/L (45-117) C-Reactive Protein 4.69 mg/dl (0-0.29) Total Protein 7.3 gm/dl (6.4-8.2) Albumin 3.5 gm/dl (3.4-5.0) Lipase 83 U/L (73-393) Bedside Lactic Acid Venous 3.13 mmol/L (0.90-1.70) Platelet Estimate DECREASED Lactic Acid Level 1.8 mmol/L (0.4-2.0) RDW Standard Deviation 47.2 fL (36.4-46.3) RDW Coefficient of Variation 13.2 % (11.5-14.5) Anion Gap 4.0 mmol/L (3-11) Est Creatinine Clear Calc Drug Dose 57.0 ml/min Estimated GFR () 69.1 Estimated GFR (Non- 59.6 BUN/Creatinine Ratio 17.3 (10-20) Calcium Level 8.6 mg/dl (8.5-10.1) Magnesium Level 2.1 mg/dl (1.8-2.4) Test 12/18/16 11:22 Bedside Glucose 160 mg/dl (70-99) Date/Time Source Procedure Growth Status 12/16/16 17:11 Blood Blood Culture - Preliminary NO GROWTH TO DATE. Resulted 12/17/16 00:00 Nasal MRSA DNA Surveillance Screen - Final Specimen Positive for MRSA by DNA Probe Complete Last 24 Hours Test 12/17/16 16:29 12/17/16 20:15 12/18/16 07:21 12/18/16 07:36 Bedside Glucose 122 mg/dl 144 mg/dl 96 mg/dl White Blood Count 5.34 K/uL Red Blood Count 3.84 M/uL Hemoglobin 12.6 g/dL Hematocrit 37.4 % Mean Corpuscular Volume 97.4 fL Mean Corpuscular Hemoglobin 32.8 pg Mean Corpuscular Hemoglobin Concent 33.7 g/dl RDW Standard Deviation 47.2 fL RDW Coefficient of Variation 13.2 % Platelet Count 116 K/uL Mean Platelet Volume 12.2 fL Sodium Level 138 mmol/L Potassium Level 3.9 mmol/L Chloride Level 104 mmol/L Carbon Dioxide Level 30 mmol/L Anion Gap 4.0 mmol/L Blood Urea Nitrogen 19 mg/dl Creatinine 1.10 mg/dl Est Creatinine Clear Calc Drug Dose 57.0 ml/min Estimated GFR () 69.1 Estimated GFR (Non- 59.6 BUN/Creatinine Ratio 17.3 Random Glucose 106 mg/dl Calcium Level 8.6 mg/dl Magnesium Level 2.1 mg/dl Test 12/18/16 11:22 Bedside Glucose 160 mg/dl Assessment & Plan 86 yoM with erysipelas 1. Erysipelas-likely 2/2 a cut while shaving. CT maxillofacial consistent with cellulitis, no abscess identified, Blood cultures negative and not clinically ill-appearing. Lactate resolved and he has no leukocytosis. Cont Rocephin for strep coverage and Vanc for MRSA coverage as he is colonized with MRSA. Although there is some improvement the erythema still encompasses entire L mid- low face and ear so IV abx will be continued 2. DMII-hold PO diabetic agents, SSI coverage. with Lantus added at 11Units BID--sugars are at goal. 3. DEEP 2/2 dehydration--resolved 4. Hypertension-Cont to hold Lasix (40mg PO BID) and spironolactone for one more day to avoid dehydration, cont BB. Consider restarting tomorrow. 5. COPD-stable, no wheezing, cont home inhalers 6. MIKIE-cont CPAP qHS 7. Dementia-cont Aricept 8. Diastolic CHF-chronic, euvolemic on exam, no signs or symptoms of acute heart failure, cont holding spironolactone and Lasix in setting of DEEP 9. Hypothyroidism-cont Synthroid 10. BPH-cont Proscar, Flomax 11. Lung nodules-enlarged on CXR, requires non-emergent CT chest as outpatient DVT PROPHYLAXIS: change heparin to Lovenox CODE STATUS: FULL CODE per discussion with the patient's daughter who is POA Dispo to rehab when bed available after infection improves and he is on PO abx DO [facility] Current Inpatient Medications: Current Inpatient Medications Medications (Trade) Dose Ordered Sig/Heraclio Route Start Time Stop Time Status Last Admin Dose Admin Heparin Sodium (Porcine) (Heparin Sq 5000 Unit/0.5ml) 5,000 unit Q8H SQ 12/16/16 22:00 01/15/17 21:59 12/18/16 05:52 5,000 UNIT Acetaminophen (Tylenol Tab) 650 mg Q4H PRN PO 12/16/16 17:30 01/15/17 17:29 12/16/16 18:59 650 MG Ondansetron HCl (Zofran Inj) 4 mg Q6H PRN IV 12/16/16 17:30 01/15/17 17:29 Aspirin (Ecotrin Tab) 81 mg DAILY PO 12/17/16 09:00 01/16/17 08:59 12/18/16 10:13 81 MG Cyclobenzaprine HCl (Flexeril Tab) 10 mg TID PRN PO 12/16/16 17:30 01/15/17 17:29 Donepezil HCl (Aricept Tab) 10 mg DAILY PO 12/17/16 09:00 01/16/17 08:59 12/18/16 08:51 10 MG Finasteride (Proscar Tab) 5 mg QAM PO 12/17/16 09:00 01/16/17 08:59 12/18/16 08:50 5 MG Levothyroxine Sodium (Synthroid Tab) 75 mcg DAILYBB PO 12/17/16 06:30 01/16/17 06:29 12/18/16 07:44 75 MCG Metoprolol Tartrate (Lopressor Tab) 50 mg BID PO 12/16/16 21:00 01/15/17 20:59 12/18/16 08:51 50 MG Mirtazapine (Remeron Tab) 15 mg HS PO 12/16/16 21:00 01/15/17 20:59 12/17/16 21:23 15 MG Pantoprazole Sodium (Protonix Tab) 40 mg DAILY PO 12/17/16 09:00 01/16/17 08:59 12/18/16 08:52 40 MG Tamsulosin HCl (Flomax Cap) 0.4 mg DAILY PO 12/17/16 09:00 01/16/17 08:59 12/18/16 08:51 0.4 MG Tiotropium [place] (Spiriva Handihaler Inhaler) 1 puff DAILY INH 12/17/16 09:00 01/16/17 08:59 12/18/16 08:50 1 PUFF Tramadol HCl (Ultram Tab) 50 mg Q4H PRN PO 12/16/16 17:30 01/15/17 17:29 Insulin Aspart (novoLOG ASPART) SLIDING SCALE If C... ACHS SC 12/16/16 21:00 12/18/16 12:18 5 UNITS Glucose (Glucose 40% Gel) 15-30 GRAMS 15 GRAMS... UD PRN PO 12/16/16 17:30 01/15/17 17:29 Glucose (Glucose Chew Tab) 4-8 Tablets 4 Tabl... UD PRN PO 12/16/16 17:30 01/15/17 17:29 Dextrose (Dextrose 50% 50ML Syringe) 25-50ML OF 50% DW IV FOR... UD PRN IV 12/16/16 17:30 01/15/17 17:29 Glucagon 1 mg 1 mg UD PRN SQ 12/16/16 17:30 01/15/17 17:29 Ceftriaxone Sodium/Dextrose (Rocephin Inj/ Dextrose Add-[place] 50ML) 50 ml @ 100 mls/hr Q24H IV 12/17/16 13:00 12/27/16 12:59 12/17/16 13:21 100 MLS/HR Vancomycin HCl (Consult) 1 ea UD PRN N/A 12/17/16 13:00 01/16/17 12:59 Insulin Glargine 11 unit 11 unit BID SQ 12/17/16 21:00 01/16/17 20:59 12/18/16 08:59 11 UNIT Vancomycin HCl/ Sodium Chloride (Vancomycin Inj/ [place] 500ml) 532 ml @ 200 mls/hr DAILY@1000 IV 12/18/16 10:00 12/27/16 14:24 12/18/16 10:13 200 MLS/HR Hydroxyzine HCl (Vistaril Tab) 10 mg Q6H PRN PO 12/17/16 21:30 01/16/17 21:29 12/17/16 21:45 10 MG
[2016-12-18] MEDS: MIRTAZAPINE TAB 15 MG TAB PO SCH (21:49)
[2016-12-19] VITALS (7 sets, daily range): BP systolic 123–155; BP diastolic 68–82; PULSE 54–79; TEMP 36.5–36.8; O2SAT 93–95
[2016-12-19] MEDS: LEVOTHYROXINE 75 MCG TAB PO SCH (05:59)
[2016-12-19 06:03] LABS: HEMATOCRIT 39.5 % (42-52); MEAN CELL VOLUME 97.8 fL (80-100); MEAN CORPUSCULAR HEMOGLOBIN 32.2 pg (25-34); MEAN CORPUSCULAR HGB CONC 32.9 g/dl (32-36); MEAN PLATELET VOLUME 12.5 fL (7.4-10.4); PLATELET COUNT 136 K/uL (130-400); RED BLOOD COUNT 4.04 M/uL (4.7-6.1); WHITE BLOOD COUNT 4.03 K/uL (4.8-10.8)
[2016-12-19] MEDS: HEPARIN SOD 5000 UNIT/0.5 ML CARP SQ SCH ×3 (06:04→21:12)
[2016-12-19 06:35] LABS: BUN/CREATININE RATIO 18.7 (10-20); CALCIUM 8.4 mg/dl (8.5-10.1); CREATININE 0.93 mg/dl (0.60-1.40); POTASSIUM 4.1 mmol/L (3.5-5.1)
[2016-12-19] MEDS: TIOTROPIUM BROMIDE 5 PUFF/90 MCG INH INH SCH (08:15)
[2016-12-19] MEDS: DONEPEZIL HCL 10 MG TAB PO SCH (08:15)
[2016-12-19] MEDS: METOPROLOL TARTRATE 50 MG TAB PO SCH ×2 (08:16→21:16)
[2016-12-19] MEDS: PANTOprazole SOD 40 MG TAB PO SCH (08:16)
[2016-12-19] MEDS: FINASTERIDE 5 MG TAB PO SCH (08:16)
[2016-12-19] MEDS: ASPIRIN 81 MG ECTAB PO SCH (08:16)
[2016-12-19] MEDS: TAMSULOSIN HCL 0.4 MG CAP PO SCH (08:16)
[2016-12-19] MEDS: INSULIN ASPART 100 UNITS/ML 3 ML PEN SC SCH ×4 (08:18→21:11)
[2016-12-19] MEDS: INSULIN GLARGINE SOLOSTAR 100 UNITS/ML 3 ML PEN SQ SCH ×2 (08:19→21:11)
[2016-12-19] MEDS ORDERED: ERGOCALCIFEROL 50,000 INTER.UNIT CAP PO SCH (09:00)
[2016-12-19] MEDS ORDERED: VANCOMYCIN TROUGH SCH (09:30)
[2016-12-19] MEDS: VANCOMYCIN INJ 1,600 MG in SODIUM CHLORIDE 0.9% 500ML 500 ML IV SCH ×2 (10:07→15:30)
[2016-12-19] MEDS: CEFTRIAXONE SOD INJ 1 GM in DEXTROSE 5% ADD-VANTAGE 50ML 50 ML IV SCH (13:35)
[2016-12-19] MEDS ORDERED: VANCOMYCIN INJ 1,600 MG in SODIUM CHLORIDE 0.9% 500ML 500 ML IV SCH ×4 (14:00)
--- NOTE | 2016-12-19 18:20 | Progress Note ---
Medicine Progress Note Date & Time of Visit: December 19, 2016 at 0900. Subjective Doing well today Pt without any complaints He is OK with attempting to sit in chair today Ergocalciferol was started with vit D level of 10 Objective Last 8 Hrs Date Time Temp Pulse Resp B/P Pulse Ox O2 Delivery O2 Flow Rate FiO2 12/19/16 16:00 95 Room Air 12/19/16 15:26 36.5 54 20 123/76 95 Room Air Physical Exam: GEN: obese, in no acute distress, alert, hard of hearing HEENT: NC/AT, normal sclerae, mucous membranes moist, erythematous area includes entire left cheek to lower eyelid, stops at left lateral nasolabial fold line, spreads just to the mandible and slightly pick below this and encompasses the entire left ear including ear swelling. Erythema is warm to the touch. Sclera not affected. Redness has some areas of lightening, however , redness spread slightly upward to his R taoist area-->overall there has been recession of the erythema demarcation and continued clearing of redness. Still painful to touch CARDIO: reg rate, S1/2 heard without m/g/r LUNGS: CTA bilaterally, no crackles, rales or wheezes, good diaphragmatic excursion ABD: soft, non-tender, non-distended, no rebound or guarding EXTREMITY: no LE swelling or edema, extremities are warm and well-perfused, shins are TTP bilaterally NEURO: CN 2-12 grossly intact MUSC: no gross focal deficits SKIN: warm and dry and as above. Laboratory Results: 12/19/16 05:21 12/19/16 05:21 Test 12/16/16 14:50 12/16/16 14:59 12/17/16 05:55 12/18/16 07:21 Immature Granulocyte % (Auto) 0.3 % White Blood Count 9.85 K/uL (4.8-10.8) Red Blood Count 4.48 M/uL (4.7-6.1) Hemoglobin 14.6 g/dL (14.0-18.0) Hematocrit 43.3 % (42-52) Mean Corpuscular Volume 96.7 fL (80-100) Mean Corpuscular Hemoglobin 32.6 pg (25-34) Mean Corpuscular Hemoglobin Concent 33.7 g/dl (32-36) Platelet Count 145 K/uL (130-400) Mean Platelet Volume 13.0 fL (7.4-10.4) Neutrophils (%) (Auto) 83.7 % Lymphocytes (%) (Auto) 8.2 % Monocytes (%) (Auto) 7.4 % Eosinophils (%) (Auto) 0.0 % Basophils (%) (Auto) 0.4 % Neutrophils # (Auto) 8.24 K/uL (1.4-6.5) Lymphocytes # (Auto) 0.81 K/uL (1.2-3.4) Monocytes # (Auto) 0.73 K/uL (0.11-0.59) Eosinophils # (Auto) 0.00 K/uL (0-0.5) Basophils # (Auto) 0.04 K/uL (0-0.2) Immature Granulocyte # (Auto) 0.03 K/uL (0.00-0.02) Erythrocyte Sedimentation Rate 33 mm/hr (0-14) Prothrombin Time 11.4 SECONDS (9.0-12.0) Prothromb Time International Ratio 1.1 (0.9-1.1) Activated Partial Thromboplast Time 26.9 SECONDS (21.0-31.0) Partial Thromboplastin Ratio 1.0 Total Bilirubin 0.6 mg/dl (0.2-1) Direct Bilirubin 0.2 mg/dl (0-0.2) Aspartate Amino Transf (AST/SGOT) 38 U/L (15-37) Alanine Aminotransferase (ALT/SGPT) 46 U/L (12-78) Alkaline Phosphatase 98 U/L (45-117) C-Reactive Protein 4.69 mg/dl (0-0.29) Total Protein 7.3 gm/dl (6.4-8.2) Albumin 3.5 gm/dl (3.4-5.0) Lipase 83 U/L (73-393) Bedside Lactic Acid Venous 3.13 mmol/L (0.90-1.70) Platelet Estimate DECREASED Lactic Acid Level 1.8 mmol/L (0.4-2.0) Magnesium Level 2.1 mg/dl (1.8-2.4) Test 12/19/16 05:21 12/19/16 09:45 12/19/16 16:52 Red Blood Count 4.04 M/uL (4.7-6.1) Mean Corpuscular Volume 97.8 fL (80-100) Mean Corpuscular Hemoglobin 32.2 pg (25-34) Mean Corpuscular Hemoglobin Concent 32.9 g/dl (32-36) RDW Standard Deviation 47.3 fL (36.4-46.3) RDW Coefficient of Variation 13.1 % (11.5-14.5) Mean Platelet Volume 12.5 fL (7.4-10.4) Anion Gap 7.0 mmol/L (3-11) Est Creatinine Clear Calc Drug Dose 67.5 ml/min Estimated GFR () 84.7 Estimated GFR (Non- 73.0 BUN/Creatinine Ratio 18.7 (10-20) Calcium Level 8.4 mg/dl (8.5-10.1) 25-Hydroxy Vitamin D Total 10.4 ng/ml (30-100) Vancomycin Level Trough 12.1 mcg/ml (SEE COMMENT) Bedside Glucose 136 mg/dl (70-99) Date/Time Source Procedure Growth Status 12/16/16 17:11 Blood Blood Culture - Preliminary NO GROWTH TO DATE. Resulted 12/17/16 00:00 Nasal MRSA DNA Surveillance Screen - Final Specimen Positive for MRSA by DNA Probe Complete Last 24 Hours Test 12/18/16 19:57 12/19/16 05:21 12/19/16 07:32 12/19/16 09:45 Bedside Glucose 136 mg/dl 115 mg/dl White Blood Count 4.03 K/uL Red Blood Count 4.04 M/uL Hemoglobin 13.0 g/dL Hematocrit 39.5 % Mean Corpuscular Volume 97.8 fL Mean Corpuscular Hemoglobin 32.2 pg Mean Corpuscular Hemoglobin Concent 32.9 g/dl RDW Standard Deviation 47.3 fL RDW Coefficient of Variation 13.1 % Platelet Count 136 K/uL Mean Platelet Volume 12.5 fL Sodium Level 143 mmol/L Potassium Level 4.1 mmol/L Chloride Level 107 mmol/L Carbon Dioxide Level 29 mmol/L Anion Gap 7.0 mmol/L Blood Urea Nitrogen 17 mg/dl Creatinine 0.93 mg/dl Est Creatinine Clear Calc Drug Dose 67.5 ml/min Estimated GFR () 84.7 Estimated GFR (Non- 73.0 BUN/Creatinine Ratio 18.7 Random Glucose 122 mg/dl Calcium Level 8.4 mg/dl 25-Hydroxy Vitamin D Total 10.4 ng/ml Vancomycin Level Trough 12.1 mcg/ml Test 12/19/16 11:30 12/19/16 16:52 Bedside Glucose 191 mg/dl 136 mg/dl Assessment & Plan 86 yoM with erysipelas 1. Erysipelas-likely 2/[address] shaving. [address] maxillofacial consistent with cellulitis, no abscess identified, Blood cultures negative and not clinically ill-appearing. Lactate resolved and he has no leukocytosis. Cont Rocephin for strep coverage and Vanc for MRSA coverage as he is colonized with MRSA. Although there is some improvement the erythema still encompasses entire L mid- low face and ear so IV abx will be continued 2. Vitamin D deficiency-likely contributing to gait instability. Replacement started with ergocalciferol for 12 weeks. 3. DMII-hold PO diabetic agents, SSI coverage. with Lantus added at 11Units BID--sugars remain at goal. 4. DEEP 2/2 dehydration--resolved 5. Hypertension-Restarting Lasix at 50% dose (20mg PO BID) and spironolactone 6. COPD-stable, no wheezing, cont home inhalers 7. MIKIE-cont CPAP qHS 8. Dementia-cont Aricept 9. Diastolic CHF-chronic, euvolemic on exam, no signs or symptoms of acute heart failure, restarting diuretics as above. 10. Hypothyroidism-cont Synthroid 11. BPH-cont Proscar, Flomax 12. Lung nodules-enlarged on CXR, requires non-emergent CT chest as outpatient DVT PROPHYLAXIS: change heparin to Lovenox CODE STATUS: FULL CODE per discussion with the patient's daughter who is POA Dispo: to home with Home Health and family support. Discussion with daughter ( POA) at bedside today who states going to rehab is not what they want for pt despite PT recommendations for rehab. Will plan for HH for PT when closer to discharge. Mary Davis DO [facility] Hospitalist Current Inpatient Medications: Current Inpatient Medications Medications (Trade) Dose Ordered Sig/Heraclio Route Start Time Stop Time Status Last Admin Dose Admin Heparin Sodium (Porcine) (Heparin Sq 5000 Unit/0.5ml) 5,000 unit Q8H SQ 12/16/16 22:00 01/15/17 21:59 12/19/16 13:39 5,000 UNIT Acetaminophen (Tylenol Tab) 650 mg Q4H PRN PO 12/16/16 17:30 01/15/17 17:29 12/16/16 18:59 650 MG Ondansetron HCl (Zofran Inj) 4 mg Q6H PRN IV 12/16/16 17:30 01/15/17 17:29 Aspirin (Ecotrin Tab) 81 mg DAILY PO 12/17/16 09:00 01/16/17 08:59 12/19/16 08:16 81 MG Cyclobenzaprine HCl (Flexeril Tab) 10 mg TID PRN PO 12/16/16 17:30 01/15/17 17:29 Donepezil HCl (Aricept Tab) 10 mg DAILY PO 12/17/16 09:00 01/16/17 08:59 12/19/16 08:15 10 MG Finasteride (Proscar Tab) 5 mg QAM PO 12/17/16 09:00 01/16/17 08:59 12/19/16 08:16 5 MG Levothyroxine Sodium (Synthroid Tab) 75 mcg DAILYBB PO 12/17/16 06:30 01/16/17 06:29 12/19/16 05:59 75 MCG Metoprolol Tartrate (Lopressor Tab) 50 mg BID PO 12/16/16 21:00 01/15/17 20:59 12/19/16 08:16 50 MG Mirtazapine (Remeron Tab) 15 mg HS PO 12/16/16 21:00 01/15/17 20:59 12/18/16 21:49 15 MG Pantoprazole Sodium (Protonix Tab) 40 mg DAILY PO 12/17/16 09:00 01/16/17 08:59 12/19/16 08:16 40 MG Tamsulosin HCl (Flomax Cap) 0.4 mg DAILY PO 12/17/16 09:00 01/16/17 08:59 12/19/16 08:16 0.4 MG Tiotropium [place] (Spiriva Handihaler Inhaler) 1 puff DAILY INH 12/17/16 09:00 01/16/17 08:59 12/19/16 08:15 1 PUFF Tramadol HCl (Ultram Tab) 50 mg Q4H PRN PO 12/16/16 17:30 01/15/17 17:29 Insulin Aspart (novoLOG ASPART) SLIDING SCALE If C... ACHS SC 12/16/16 21:00 01/15/17 23:59 12/19/16 17:56 4 UNITS Glucose (Glucose 40% Gel) 15-30 GRAMS 15 GRAMS... UD PRN PO 12/16/16 17:30 01/15/17 17:29 Glucose (Glucose Chew Tab) 4-8 Tablets 4 Tabl... UD PRN PO 12/16/16 17:30 01/15/17 17:29 Dextrose (Dextrose 50% 50ML Syringe) 25-50ML OF 50% DW IV FOR... UD PRN IV 12/16/16 17:30 01/15/17 17:29 Glucagon 1 mg 1 mg UD PRN SQ 12/16/16 17:30 01/15/17 17:29 Ceftriaxone Sodium/Dextrose (Rocephin Inj/ Dextrose Add-[place] 50ML) 50 ml @ 100 mls/hr Q24H IV 12/17/16 13:00 12/27/16 12:59 12/19/16 13:35 100 MLS/HR Vancomycin HCl (Consult) 1 ea UD PRN N/A 12/17/16 13:00 01/16/17 12:59 Insulin Glargine (Lantus Solostar Pen) 11 unit BID SQ 12/17/16 21:00 01/16/17 20:59 12/19/16 08:19 11 UNIT Hydroxyzine HCl (Vistaril Tab) 10 mg Q6H PRN PO 12/17/16 21:30 01/16/17 21:29 12/17/16 21:45 10 MG Ergocalciferol 66076 interunit 50,000 interunit Q7D@0900 PO 12/19/16 09:00 01/18/17 08:59 12/19/16 10:07 50,000 INTERUNIT Vancomycin HCl/ Sodium Chloride (Vancomycin Inj/ Nss 500ml) 532 ml @ 200 mls/hr Q16H IV 12/19/16 16:00 12/29/16 15:59 12/19/16 15:30 200 MLS/HR
[2016-12-19] MEDS: MIRTAZAPINE TAB 15 MG TAB PO SCH (21:16)
[2016-12-20] MEDS: LEVOTHYROXINE 75 MCG TAB PO SCH (05:34)
[2016-12-20] MEDS: HEPARIN SOD 5000 UNIT/0.5 ML CARP SQ SCH ×3 (05:37→21:17)
[2016-12-20 07:11] LABS: BUN/CREATININE RATIO 19.7 (10-20); CALCIUM 8.3 mg/dl (8.5-10.1); CREATININE 0.9 mg/dl (0.60-1.40); POTASSIUM 4.1 mmol/L (3.5-5.1)
[2016-12-20 07:13] VITALS: BP 149/78; PULSE 56; TEMP 36.5; O2SAT 96
[2016-12-20] MEDS: FUROSEMIDE 20 MG TAB PO SCH ×2 (08:02→17:18)
[2016-12-20] MEDS: VANCOMYCIN INJ 1,600 MG in SODIUM CHLORIDE 0.9% 500ML 500 ML IV SCH (08:02)
[2016-12-20] MEDS: PANTOprazole SOD 40 MG TAB PO SCH (08:03)
[2016-12-20] MEDS: TIOTROPIUM BROMIDE 5 PUFF/90 MCG INH INH SCH (08:03)
[2016-12-20] MEDS: SPIRONOLACTONE 25 MG TAB PO SCH (08:03)
[2016-12-20] MEDS: DONEPEZIL HCL 10 MG TAB PO SCH (08:04)
[2016-12-20] MEDS: ASPIRIN 81 MG ECTAB PO SCH (08:05)
[2016-12-20] MEDS: TAMSULOSIN HCL 0.4 MG CAP PO SCH (08:05)
[2016-12-20] MEDS: FINASTERIDE 5 MG TAB PO SCH (08:05)
[2016-12-20] MEDS: INSULIN GLARGINE SOLOSTAR 100 UNITS/ML 3 ML PEN SQ SCH ×2 (08:12→21:18)
[2016-12-20] MEDS: INSULIN ASPART 100 UNITS/ML 3 ML PEN SC SCH ×4 (08:12→21:19)
[2016-12-20] MEDS: METOPROLOL TARTRATE 50 MG TAB PO SCH ×2 (08:14→21:17)
[2016-12-20] MEDS: CEFTRIAXONE SOD INJ 1 GM in DEXTROSE 5% ADD-VANTAGE 50ML 50 ML IV SCH (12:10)
[2016-12-20] MEDS: CLINDAMYCIN HCL 150 MG CAP PO SCH ×3 (14:20→23:25)
[2016-12-20 15:32] VITALS: BP 130/82; PULSE 64; TEMP 36.5; O2SAT 92
[2016-12-20] MEDS: MIRTAZAPINE TAB 15 MG TAB PO SCH (21:16)
[2016-12-20 21:20] VITALS: BP 135/77; PULSE 64
[2016-12-20] MEDS ORDERED: VANCOMYCIN TROUGH ONE ×2 (21:30→23:30)
[2016-12-20 21:36] VITALS: PULSE 65; O2SAT 95
--- NOTE | 2016-12-20 22:31 | Progress Note ---
Medicine Progress Note Date & Time of Visit: December 20, 2016 at 13:24. Subjective Doing well today Pt without any complaints state things are getting better and less tender tolerating PO bowel movements + Objective Last 8 Hrs Date Time Temp Pulse Resp B/P Pulse Ox O2 Delivery O2 Flow Rate FiO2 12/20/16 08:00 Room Air 12/20/16 07:13 36.5 56 18 149/78 96 2.0 Physical Exam: GEN: obese, in no acute distress, alert, hard of hearing HEENT: NC/AT, normal sclerae, mucous membranes moist, erythematous area greatly improved, no TTP and ear swelling has reduced by 50% CARDIO: reg rate, S1/2 heard without m/g/r LUNGS: CTA bilaterally, no crackles, rales or wheezes, good diaphragmatic excursion ABD: soft, non-tender, non-distended, no rebound or guarding EXTREMITY: no LE swelling or edema, extremities are warm and well-perfused, shins are TTP bilaterally NEURO: CN 2-12 grossly intact MUSC: no gross focal deficits SKIN: warm and dry and as above. Laboratory Results: 12/20/16 06:05 Test 12/20/16 06:05 12/20/16 19:47 Anion Gap 6.0 mmol/L (3-11) Est Creatinine Clear Calc Drug Dose 69.7 ml/min Estimated GFR () 88.1 Estimated GFR (Non- 76.0 BUN/Creatinine Ratio 19.7 (10-20) Calcium Level 8.3 mg/dl (8.5-10.1) Bedside Glucose 184 mg/dl (70-99) Date/Time Source Procedure Growth Status 12/20/16 09:00 Stool C.difficile Toxin B Gene (PCR) - Final No C. difficile toxin B gene detected Complete Last 24 Hours Test 12/19/16 16:52 12/19/16 20:13 12/20/16 06:05 12/20/16 07:20 Bedside Glucose 136 mg/dl 144 mg/dl 110 mg/dl Sodium Level 143 mmol/L Potassium Level 4.1 mmol/L Chloride Level 108 mmol/L Carbon Dioxide Level 29 mmol/L Anion Gap 6.0 mmol/L Blood Urea Nitrogen 18 mg/dl Creatinine 0.90 mg/dl Est Creatinine Clear Calc Drug Dose 69.7 ml/min Estimated GFR () 88.1 Estimated GFR (Non- 76.0 BUN/Creatinine Ratio 19.7 Random Glucose 127 mg/dl Calcium Level 8.3 mg/dl Test 12/20/16 11:31 Bedside Glucose 189 mg/dl Date/Time Source Procedure Growth Status 12/20/16 09:00 Stool C.difficile Toxin B Gene (PCR) Pending Received Assessment & Plan 86 yoM with erysipelas 1. Erysipelas-likely 2/2 a cut while shaving. CT maxillofacial consistent with cellulitis, no abscess identified, Blood cultures negative and not clinically ill-appearing. Lactate resolved and he has no leukocytosis. Rocephin for strep coverage and Vanc for MRSA coverage as he is colonized with MRSA. Significantly improved today truong swelling of the ear. Changing to PO [place] today and ensure he is tolerating this at his age and he doesn't decline or fever. 2. Vitamin D deficiency-likely contributing to gait instability. Replacement started with ergocalciferol for 12 weeks. 3. DMII-hold PO diabetic agents, SSI coverage. with Lantus added at 11Units BID--sugars remain at goal. 4. DEEP 2/2 dehydration--resolved 5. Hypertension-Cont Lasix at 50% dose (20mg PO BID) and spironolactone , PRP in am 6. COPD-stable, no wheezing, cont home inhalers 7. MIKIE-cont CPAP qHS 8. Dementia-cont Aricept 9. Diastolic CHF-chronic, euvolemic on exam, no signs or symptoms of acute heart failure, restarting diuretics as above. 10. Hypothyroidism-cont Synthroid 11. BPH-cont Proscar, Flomax 12. Lung nodules-enlarged on CXR, requires non-emergent CT chest as outpatient DVT PROPHYLAXIS: change heparin to Lovenox CODE STATUS: FULL CODE per discussion with the patient's daughter who is POA Dispo: to home with Home Health and family support. Discussion with daughter ( POA) at bedside today who states going to rehab is not what they want for pt despite PT recommendations for rehab. Will plan for HH for PT when closer to discharge. Family (daughter) was at bedside today--discussed the plan with her and answered all questions. She is aware that he will be going home tomorrow. Mary Davis DO [facility] Hospitalist Current Inpatient Medications: Current Inpatient Medications Medications (Trade) Dose Ordered Sig/Heraclio Route Start Time Stop Time Status Last Admin Dose Admin Heparin Sodium (Porcine) (Heparin Sq 5000 Unit/0.5ml) 5,000 unit Q8H SQ 12/16/16 22:00 01/15/17 21:59 12/20/16 05:37 5,000 UNIT Acetaminophen (Tylenol Tab) 650 mg Q4H PRN PO 12/16/16 17:30 01/15/17 17:29 12/16/16 18:59 650 MG Ondansetron HCl (Zofran Inj) 4 mg Q6H PRN IV 12/16/16 17:30 01/15/17 17:29 Aspirin (Ecotrin Tab) 81 mg DAILY PO 12/17/16 09:00 01/16/17 08:59 12/20/16 08:05 81 MG Cyclobenzaprine HCl (Flexeril Tab) 10 mg TID PRN PO 12/16/16 17:30 01/15/17 17:29 Donepezil HCl (Aricept Tab) 10 mg DAILY PO 12/17/16 09:00 01/16/17 08:59 12/20/16 08:04 10 MG Finasteride (Proscar Tab) 5 mg QAM PO 12/17/16 09:00 01/16/17 08:59 12/20/16 08:05 5 MG Levothyroxine Sodium (Synthroid Tab) 75 mcg DAILYBB PO 12/17/16 06:30 01/16/17 06:29 12/20/16 05:34 75 MCG Metoprolol Tartrate (Lopressor Tab) 50 mg BID PO 12/16/16 21:00 01/15/17 20:59 12/19/16 21:16 50 MG Mirtazapine (Remeron Tab) 15 mg HS PO 12/16/16 21:00 01/15/17 20:59 12/19/16 21:16 15 MG Pantoprazole Sodium (Protonix Tab) 40 mg DAILY PO 12/17/16 09:00 01/16/17 08:59 12/20/16 08:03 40 MG Tamsulosin HCl (Flomax Cap) 0.4 mg DAILY PO 12/17/16 09:00 01/16/17 08:59 12/20/16 08:05 0.4 MG Tiotropium [place] (Spiriva Handihaler Inhaler) 1 puff DAILY INH 12/17/16 09:00 01/16/17 08:59 12/20/16 08:03 1 PUFF Tramadol HCl (Ultram Tab) 50 mg Q4H PRN PO 12/16/16 17:30 01/15/17 17:29 Insulin Aspart (novoLOG ASPART) SLIDING SCALE If C... ACHS SC 12/16/16 21:00 01/15/17 23:59 12/20/16 12:10 6 UNITS Glucose (Glucose 40% Gel) 15-30 GRAMS 15 GRAMS... UD PRN PO 12/16/16 17:30 01/15/17 17:29 Glucose (Glucose Chew Tab) 4-8 Tablets 4 Tabl... UD PRN PO 12/16/16 17:30 01/15/17 17:29 Dextrose (Dextrose 50% 50ML Syringe) 25-50ML OF 50% DW IV FOR... UD PRN IV 12/16/16 17:30 01/15/17 17:29 Glucagon 1 mg 1 mg UD PRN SQ 12/16/16 17:30 01/15/17 17:29 Ceftriaxone Sodium/Dextrose (Rocephin Inj/ Dextrose Add-[place] 50ML) 50 ml @ 100 mls/hr Q24H IV 12/17/16 13:00 12/27/16 12:59 12/20/16 12:10 100 MLS/HR Vancomycin HCl (Consult) 1 ea UD PRN N/A 12/17/16 13:00 01/16/17 12:59 Insulin Glargine (Lantus Solostar Pen) 11 unit BID SQ 12/17/16 21:00 01/16/17 20:59 12/20/16 08:12 11 UNIT Hydroxyzine HCl (Vistaril Tab) 10 mg Q6H PRN PO 12/17/16 21:30 01/16/17 21:29 12/17/16 21:45 10 MG Ergocalciferol 13781 interunit 50,000 interunit Q7D@0900 PO 12/19/16 09:00 01/18/17 08:59 12/19/16 10:07 50,000 INTERUNIT Vancomycin HCl/ Sodium Chloride (Vancomycin Inj/ Nss 500ml) 532 ml @ 200 mls/hr Q16H IV 12/19/16 16:00 12/29/16 15:59 12/20/16 08:02 200 MLS/HR Spironolactone (Aldactone Tab) 12.5 mg DAILY PO 12/20/16 09:00 01/19/17 08:59 12/20/16 08:03 12.5 MG Furosemide (Lasix Tab) 20 mg BID17 PO 12/20/16 09:00 01/19/17 08:59 12/20/16 08:02 20 MG
[2016-12-20 23:08] VITALS: BP 183/81; PULSE 65; TEMP 36.3; O2SAT 96
[2016-12-20 23:40] VITALS: BP 119/63; PULSE 59
[2016-12-21] MEDS: LEVOTHYROXINE 75 MCG TAB PO SCH (05:48)
[2016-12-21] MEDS: CLINDAMYCIN HCL 150 MG CAP PO SCH ×2 (05:48→12:53)
[2016-12-21] MEDS: HEPARIN SOD 5000 UNIT/0.5 ML CARP SQ SCH (05:49)
[2016-12-21 07:33] VITALS: BP 160/82; PULSE 53; TEMP 36.4; O2SAT 95
[2016-12-21] MEDS: FUROSEMIDE 20 MG TAB PO SCH (07:51)
[2016-12-21] MEDS: FINASTERIDE 5 MG TAB PO SCH (07:51)
[2016-12-21] MEDS: SPIRONOLACTONE 25 MG TAB PO SCH (07:52)
[2016-12-21] MEDS: TIOTROPIUM BROMIDE 5 PUFF/90 MCG INH INH SCH (07:52)
[2016-12-21] MEDS: TAMSULOSIN HCL 0.4 MG CAP PO SCH (07:53)
[2016-12-21] MEDS: DONEPEZIL HCL 10 MG TAB PO SCH (07:53)
[2016-12-21] MEDS: ASPIRIN 81 MG ECTAB PO SCH (07:53)
[2016-12-21] MEDS: PANTOprazole SOD 40 MG TAB PO SCH (07:54)
[2016-12-21] MEDS: INSULIN ASPART 100 UNITS/ML 3 ML PEN SC SCH ×2 (09:01→12:56)
[2016-12-21] MEDS: INSULIN GLARGINE SOLOSTAR 100 UNITS/ML 3 ML PEN SQ SCH (09:02)
[2016-12-21] MEDS ORDERED: VTMD PO (09:11)
[2016-12-21] MEDS ORDERED: CLC150 PO (09:11)
[2016-12-21] MEDS ORDERED: LPR25 PO (09:11)
--- NOTE | 2016-12-21 09:39 | Discharge Instructions ---
Discharge Instructions Date of Service December 21, 2016. Admission Reason for Admission: Facial Cellulitis Discharge Discharge Diagnosis / Problem: erysipelas, vitamin D deficiency, ambulatory dysfunction/deconditioning Discharge Goals Goal(s): Prevent Disease Progression Activity Recommendations Activity Limitations: per Instructions/Follow-up section . Instructions / Follow-Up Instructions / Follow-Up Please take all medications as instructed. You have been placed on a vitamin D supplement to take once weekly for the next 12 weeks. This will help with balance when you walk. You will need to continue the oral antibiotic for the next few days as instructed. If you develop diarrhea or have any other issues with this medication, please seek immediate medical attention. Your heart rate was noted to be somewhat low while you were hospitalized. As a result, your beta-deloris (Metoprolol) was reduced by half. You have a follow-up appointment with your PCP, Darlyn BLUM in [place], for Friday 12/15 @135pm to discuss all of the above and ensure you are continuing to heal well. Please bring all paperwork from this hospitalization with you. You have several lung nodules which have increased in size. You will need a non -emergent CT scan of the chest to evaluate this further. This will be ordered through your primary care physician's office. It was a pleasure taking care of you! Call if you have any questions or problems. You can reach a [facility] hospitalist on duty at [facility] 24 hours a day by calling [phone]. Take care of yourself. Mary Davis, [facility] Hospitalist Current Hospital Diet Patient's current hospital diet: AHA Diet (Heart Healthy), Diabetes Type 2 Diet , Low Sodium Diet (2gm Na) Discharge Diet Recommended Diet: Low Sodium Diet (2gm Na), Diabetes Type 2 Diet Pending Studies Studies pending at discharge: no Medical Emergencies . Who to Call and When: Medical Emergencies: If at any time you feel your situation is an emergency, please call 911 immediately. . Non-Emergent Contact Non-Emergency issues call your: Primary Care Provider . . "Provider Documentation" section prepared by Mary Davis. . VTE Core Measure Inpt VTE Proph given/why not?: Unfractionated heparin SQ
--- NOTE | 2016-12-21 09:43 | Discharge Summary ---
Discharge Summary Date of Service December 21, 2016. Discharge Summary Admission Date: December 16, 2016 at 17:25 Discharge Date: December 21, 2016 Discharge Disposition: Home with services Principal Diagnosis: 1. Erysipelas 2. MRSA colonization 3. Vitamin D deficiency 4. Iatrogenic bradycardia 2/2 beta-deloris use 5. DMII 6. DEEP 2/2 dehydration-resolved 7. HTN 8. COPD 9. MIKIE 10. Dementia 11. Chronic diastolic CHF 12. Hypothyroidism 13. BPH 14. Multiple pulmonary nodules Procedures: None. Vaccinations: None. Consultations: PT/OT Pending Studies/Follow-Up: see instructions below Medication Reconciliation New Medications: Metoprolol Tartrate (Lopressor) 25 Mg Tab 25 MG PO BID for 30 Days, #60 TAB Clindamycin HCl (Clindamycin HCl) 150 Mg Cap 300 MG PO Q6 for 4 Days, #32 CAP 0 Refills Ergocalciferol (Vitamin D) 50,000 Interunit Cap 65343 INTERUNIT PO Q7D@0900 for 90 Days, #12 CAP 0 Refills Take once weekly until completed. Continued Medications: Aspirin (Aspirin Ec) 81 Mg Tab 81 MG PO DAILY Cyclobenzaprine HCl (Cyclobenzaprine HCl) 10 Mg Tab 10 MG PO TID PRN for Muscle Spasms Donepezil HCl (Donepezil HCl) 10 Mg Tab 10 MG PO DAILY Finasteride (Proscar) 5 Mg Tab 5 MG PO QAM Furosemide (Lasix) 20 Mg Tab 40 MG PO BID, TAB Glimepiride (Glimepiride) 4 Mg Tab 4 MG PO BID for 90 Days, #180 TAB 3 Refills Levothyroxine Sodium (Levothyroxine Sodium) 75 Mcg Tab 75 MCG PO DAILY Magnesium Oxide (Magnesium) 400 Mg Tab 800 MG PO DAILY Metformin HCl (Metformin HCl) 500 Mg Tab 1000 MG PO BID Mirtazapine (Mirtazapine) 15 Mg Tab 15 MG PO HS Oxygen (Oxygen) Gas 2 LITERS NA HS Pantoprazole (Protonix) 40 Mg Tab 40 MG PO DAILY, #30 TAB Spironolactone (Spironolactone) 25 Mg Tab 12.5 MG PO DAILY for 30 Days Tamsulosin HCl (Tamsulosin HCl) 0.4 Mg Cap 0.4 MG PO DAILY Tiotropium [place] (Spiriva Handihaler) 30 Puff/540 Mcg Aerp 1 CAP INH DAILY Tramadol (Ultram) 50 Mg Tab 50 MG PO Q4H PRN for Pain, TAB Discontinued Medications: Metoprolol Tartrate (Metoprolol Tartrate) 50 Mg Tab 50 MG PO BID for 30 Days, TAB Admission Information HPI (per Admitting provider): Patient seen and examined. 86 year old male with PMHx of Dementia, DM2, MIKIE, COPD, HTN, Hypothyroidism, CKD stage 3 presents to the ED complaining of face infection. History is taken primarily from the patient's family d/t patient's underlying dementia. They report that the patient had a small area of erythema on his left cheek last night that was very hot. He had an associated fever. They gave him Tylenol and he went to bed. When he wokeup this morning the erythema was over the patient's whole left cheek so they made an appointment with his PCP who then referred him to the ED for IV antibiotics. Patient has been somewhat more confused than baseline. They reports his BSG at home was over 400. He denies URI symptoms, chest pain, increase SOB, nausea, vomiting, diarrhea, dysuria, calf pain and edema .He has not been on Abx as an outpatient. He has small cut on his left cheek which the family noticed earlier this week and believe is secondary to a cut from shaving. In the ED VS are stable, there is no leukocytosis, POC lactate is 3.13. Crea is 1.5 from baseline [address] maxillofacial shows mild cellulitis. He received Unasyn and IVFs .He will be admitted for further workup and treatment. Physical Exam (per Admitting): General Appearance: + pertinent finding (Obese chronically ill appearing 86 year old male lying in bed in NAD with family at bedside ) Head: normocephalic, atraumatic Eyes: PERRL, EOMI, sclerae normal ENT: pharynx normal Neck: supple, no JVD Respiratory/Chest: chest non-tender, lungs clear, normal breath sounds, no respiratory distress, no accessory muscle use Cardiovascular: regular rate, rhythm, no edema, no gallop, no JVD, no murmur , normal peripheral pulses Abdomen/GI: normal bowel sounds, non tender, soft Back: normal inspection, no muscle spasm Extremities/Musculoskelatal: no calf tenderness, normal capillary refill, no pedal edema Neurologic/Psych: + pertinent finding (Alert, oriented to person and place, no focal deficits noted ) Skin: + pertinent finding (Erythema to left face, warm, associated small cut near left eyebrow. No purulent drainage ) Lymphatic: no adenopathy Hospital Course 86 yoM with erysipelas 1. Erysipelas-likely 2/[address] maxillofacial consistent with cellulitis, no abscess identified, Blood cultures negative and not clinically ill-appearing. Lactate resolved and he has no leukocytosis. Rocephin for strep coverage and Vanc for MRSA coverage as he is colonized with MRSA. Significantly improved today truong swelling of the ear. Changing to PO Clinda today and ensure he is tolerating this at his age and he doesn't decline or fever. 2. Vitamin D deficiency-likely contributing to gait instability. Replacement started with ergocalciferol for 12 weeks. (25OH was 10) 3. DMII-hold PO diabetic agents, SSI coverage. with Lantus added at 11Units BID--sugars remain at goal. Transition back to home regimen at discharge 4. DEEP 2/2 dehydration--resolved 5. Hypertension-Cont Lasix at 50% dose (20mg PO BID) and spironolactone , PRP in am 6. COPD-stable, no wheezing, cont home inhalers 7. MIKIE-cont CPAP qHS 8. Dementia-cont Aricept 9. Diastolic CHF-chronic, euvolemic on exam, no signs or symptoms of acute heart failure, restarting diuretics as above. 10. Hypothyroidism-cont Synthroid 11. BPH-cont Proscar, Flomax 12. Lung nodules-enlarged on CXR, requires non-emergent CT chest as outpatient Per family discussion , they prefer Home Health for PT as opposed to having the patient in a facility, which was the recommendation from PT and OT. The patient understands and agrees with this plan and obvious risks and benefits of both options were discussed fully with the family. On day of discharge, his facial erythema had almost fully resolved with significant improvement in the swelling of his L ear. He was afebrile and hemodynamically stable and otherwise physical exam was unremarkable except for some difficulty hearing and obesity. He was sent home in stable condition with for PT ordered and continued oral abx. Total time spent on discharge = 60 minutes This includes examination of the patient, discharge planning, medication reconciliation, and communication with other providers. Discharge Instructions Discharge Instructions Date of Service December 21, 2016. Admission Reason for Admission: Facial Cellulitis Discharge Discharge Diagnosis / Problem: erysipelas, vitamin D deficiency, ambulatory dysfunction/deconditioning Discharge Goals Goal(s): Prevent Disease Progression Activity Recommendations Activity Limitations: per Instructions/Follow-up section . Instructions / Follow-Up Instructions / Follow-Up Please take all medications as instructed. You have been placed on a vitamin D supplement to take once weekly for the next 12 weeks. This will help with balance when you walk. You will need to continue the oral antibiotic for the next few days as instructed. If you develop diarrhea or have any other issues with this medication, please seek immediate medical attention. Your heart rate was noted to be somewhat low while you were hospitalized. As a result, your beta-deloris (Metoprolol) was reduced by half. You have a follow-up appointment with your PCP, Darlyn BLUM in [place], for Friday 12/15 @135pm to discuss all of the above and ensure you are continuing to heal well. Please bring all paperwork from this hospitalization with you. You have several lung nodules which have increased in size. You will need a non -emergent CT scan of the chest to evaluate this further. This will be ordered through your primary care physician's office. It was a pleasure taking care of you! Call if you have any questions or problems. You can reach a [facility] hospitalist on duty at [facility] 24 hours a day by calling [phone]. Take care of yourself. Mary Davis, DO [facility] Hospitalist Additional Copies To Darlyn Morelos
[2016-12-21 10:51] VITALS: BP 160/82; PULSE 53; TEMP 36.4; O2SAT 95
[2016-12-21] MEDS ORDERED: METOPROLOL TARTRATE 25 MG TAB PO SCH (21:00)
== END 2016-12-21 14:03 | disposition home health service (06) | DRG 603 ==
LOC: ENRESERVTM → ENRESERVDT → C.EDB 13:16 → C.MED 17:25
PROVIDERS: ADMIT Family Medicine; ATTEND Hospitalist
DX: A46 Erysipelas (principal); L03.211 Cellulitis of face; N17.9 Acute kidney failure, unspecified; I50.32 Chronic diastolic (congestive) heart failure; E87.2 Acidosis; I13.0 Hypertensive heart and chronic kidney disease with heart failure and stage 1 through stage 4 chronic kidney disease, or unspecified chronic kidney disease; Z68.41 Body mass index [BMI] 40.0-44.9, adult; S01.412A Laceration without foreign body of left cheek and temporomandibular area, initial encounter; W26.8XXA Contact with other sharp object(s), not elsewhere classified, initial encounter; R00.1 Bradycardia, unspecified; T44.7X5A Adverse effect of beta-adrenoreceptor antagonists, initial encounter; R26.2 Difficulty in walking, not elsewhere classified; R53.81 Other malaise; E86.0 Dehydration; E11.22 Type 2 diabetes mellitus with diabetic chronic kidney disease; N18.3 Chronic kidney disease, stage 3 (moderate); E11.65 Type 2 diabetes mellitus with hyperglycemia; N40.0 Benign prostatic hyperplasia without lower urinary tract symptoms; J44.9 Chronic obstructive pulmonary disease, unspecified; E03.9 Hypothyroidism, unspecified; R91.8 Other nonspecific abnormal finding of lung field; E55.9 Vitamin D deficiency, unspecified; G47.33 Obstructive sleep apnea (adult) (pediatric); F03.90 Unspecified dementia, unspecified severity, without behavioral disturbance, psychotic disturbance, mood disturbance, and anxiety; E66.9 Obesity, unspecified; Z22.322 Carrier or suspected carrier of Methicillin resistant Staphylococcus aureus; Z99.89 Dependence on other enabling machines and devices; Z99.81 Dependence on supplemental oxygen; Z96.651 Presence of right artificial knee joint; Z87.891 Personal history of nicotine dependence; Z79.82 Long term (current) use of aspirin; Z79.84 Long term (current) use of oral hypoglycemic drugs; Z79.891 Long term (current) use of opiate analgesic; Z79.899 Other long term (current) drug therapy